=== PATIENT | female | born 1940 | race Caucasian/White ===

== ENCOUNTER 2020-03-04 16:16 | Inpatient (IN) | payer MEDICARE, MEDICAID ==
[~2020-03-04] VITALS: Ht 165.1 cm; Wt 63.3 kg
[~2020-03-04 16:16] MED LIST: FLUT250M2 INH; FURO1TAB33 PO; GLIM2TAB33 PO; HYDR-3682 PO; LEVO500T21 PO; LISI-275 PO; METF-371 PO; NIC21P TD; PANT40TA2 PO; SACC250C PO; SIMV-8 PO
--- NOTE | 2020-03-04 17:30 | NUR ---
Direct Admit Note GABE PULIDO admitted to Telemetry/MS unit as a direct admit per MD order. Patient oriented to JUAN MAHMOOD, RN primary RN, unit, room, bed, and unit policies regarding patient care and visiting hours. Patient now on continuous telemetry monitoring, tele box # [id number]. Patient placed on bedside oxygen, weighed by bedscale and encouraged to call if they need something. All questions and concerns addressed, patient verbalized understanding. MD notified of patients arrival and admit orders received. Bed in low and locked position, rails up x2, no-slip socks on. Written admit orders added, page to dr Barnes, patient requesting sleeping pill and nicotine patch, awaiting call back. IV access obtained with a left wrist 22g after one attempt, patient tolerated it well. Plan of care reviewed.
[2020-03-04 17:39] VITALS: BP 110/72
[2020-03-04] MEDS ORDERED: NITROGLYCERIN 0.4 MG SL TAB SL PRN (18:00)
[2020-03-04] MEDS ORDERED: ALBUTEROL SULF 2.5 MG/0.5ML(0.5%) NEB SOLN NEB PRN (18:00)
[2020-03-04] MEDS ORDERED: SOD CHL 0.45% 1,000 ML IV SCH (18:00)
[2020-03-04] MEDS ORDERED: MORPHINE SULF INJ 2 MG/ML SYRINGE 1ML IV PRN (18:00)
[2020-03-04] MEDS ORDERED: DEXTROSE (50%) 50ML SYRG IV PRN (18:00)
[2020-03-04] MEDS: ALBUTEROL SULF 2.5 MG/0.5ML(0.5%) NEB SOLN NEB SCH (18:00)
[2020-03-04] MEDS ORDERED: LORazepam 2MG/ML-1ML VIAL IV PRN ×2 (18:00→19:45)
[2020-03-04] MEDS ORDERED: ALBUAER3 IN (18:44)
[2020-03-04] MEDS ORDERED: LANS-34 PO (18:44)
[2020-03-04] MEDS ORDERED: METF-869 PO (18:44)
[2020-03-04] MEDS ORDERED: ASPI-498 PO (18:48)
[2020-03-04] MEDS ORDERED: METH2.5T PO (18:48)
--- NOTE | 2020-03-04 19:10 | NUR ---
OPENING SHIFT NOTE: Assumed care of patient. Patient A&O x 4 with some SOB and cough, patient denies pain. Bed in lowest locked position with two side rails raised and call adam within reach. Instructed on POC and encouraged to call for assistance, all questions and concerns addressed, patient verbalizes understanding. Will continue to monitor Q1 hr and PRN.
[2020-03-04 19:44] LABS: Basophils # (auto) 0 10 ^3/uL (0-0.2); Basophils % (auto) 0.7 % (0.0-2.0); Eosinophils # (auto) 0 10 ^3/uL (0-0.8); Eosinophils % (auto) 0.6 % (0.0-7.0); Lymphocytes # (auto) 1.2 10 ^3/uL (0.4-5.4); Lymphocytes % (auto) 25.3 % (10.0-50.0); Mean Corpuscular Hgb Conc. 33.2 g/dL (32.0-36.0); Mean Corpuscular Volume 99.3 fL (80.0-100.0); Monocytes # (auto) 0.5 10 ^3/uL (0-1.3); Monocytes % (auto) 10.1 % (0.0-12.0); Neutrophils # (auto) 2.9 10 ^3/uL (1.6-8.6); Neutrophils % (auto) 63.3 % (37.0-80.0); Nucleated Red Blood Cells % 0.3 %; Platelet Count (auto) 167 10^3/uL (140-450); Red Blood Cells 4.54 10^6/uL (4.0-5.20); Red Cell Distribution Width 15.3 % (11.8-14.3); White Blood Cell 4.6 10^3/uL (4.4-10.8)
[2020-03-04 19:58] LABS: INR 1.11 (0.9-1.15); Partial Thromboplastin Time 26.4 sec (23.0-31.2)
[2020-03-04 20:00] VITALS: BP 103/60
[2020-03-04 20:01] LABS: Calcium 8.8 mg/dL (8.5-10.1); Potassium 4.5 mmol/L (3.5-5.1)
[2020-03-04 20:07] LABS: Albumin 3.5 g/dL (3.4-5.0); BUN/Creatinine Ratio 14.8; Bilirubin, Total 0.5 mg/dL (0.2-1.0); Total Protein 6.4 g/dL (6.4-8.2)
[2020-03-04] MEDS ORDERED: LORazepam 0.5 MG TAB PO ONE (20:15)
[2020-03-04] MEDS ORDERED: LORazepam 0.5 MG TAB PO PRN ×2 (20:15)
[2020-03-04] MEDS: LISINOPRIL 5 MG TAB PO SCH (21:50)
[2020-03-04] MEDS: SULFACETAMIDE SOD 10% OPTH(EYE) SOL 15ML EACHEYE SCH (21:51)
[2020-03-04] MEDS: PANTOPRAZOLE 40 MG/10 ML VIAL INJ IV SCH (21:52)
[2020-03-04] MEDS: methylPREDNISolone SOD SUCC 40 MG/ML VL IV SCH (21:53)
[2020-03-04] MEDS: InsuLIN REG 1unit/0.01ml Soln (100units/ml) SC SCH (21:54)
[2020-03-04] MEDS: ACCU-CHEK COMFORT CURVE STRIP VI SCH (21:54)
--- NOTE | 2020-03-04 21:54 | NUR ---
Medication Held: Patient refused scheduled 2200 insulin stating, "I don't take insulin at home and I wouldn't take insulin for a sugar of 134." Fingerstick 134, Patient educated regarding insulin compliance, patient verbalizes understanding, medication held. 2200 Lisinopril held due to decreased blood pressure. BP taken three times, first BP 103/60, second BP 99/60, Third BP 101/54. Medication held.
[2020-03-04 22:00] VITALS: BP 103/60
[2020-03-05 01:36] VITALS: BP 103/60
--- NOTE | 2020-03-05 02:40 | NUR ---
CALLED TO BEDSIDE BY RN. PT IS IN MODERATE DISTRESS. WITH POX OF 59% ON 4L NC. PT WAS GIVEN A UNIT DOSE OF ALBUTEROL AND SATURATIONS SLOWLY IMPROVED. PT HAS A VERY COARSE WET COUGH. BS ARE DIMINISHED WITH EXP WHEEZES AND CRACKLES. PT DID STATE SUBJECTIVE RELIEVE. PT PLACED ON 10L OXYMIZER. SUGGESTED TO RN THAT PT SHOULD HAVE A STAT CXR FOR INCREASED O2 REQUIREMENTS AND POSSIBLE COVID SWAB. WILL CONT TO MONITOR.
--- NOTE | 2020-03-05 02:45 | NUR ---
Patient complains of increased SOB with wet non-productive cough. Patient Oxygen saturation 60% on 3L NC. Oxygen increased to 6L NC, Oxygen saturation 72%. Respiratory Therapist paged for PRN breathing treatment. Patient placed on 10 L Simple Mask. Oxygen increased to 83%.
--- NOTE | 2020-03-05 02:50 | NUR ---
Patient placed on 10L oxymizer post breathing treatment. Oxygen saturation 90%, patient still experiencing SOB and increased work of breathing. Will call MD to update on patient status
--- NOTE | 2020-03-05 02:55 | NUR ---
Called MD Spoke to MD Barnes regarding patient status and increased SOB, wet cough with bilateral coarse crackles, and decrease in oxygen saturation. New orders received for stat chest x-ray, D/C of IV fluids, 20 mg Lasix, and COVID swab, will note new orders
[2020-03-05] MEDS ORDERED: FUROSEMIDE 20 MG/2 ML VIAL IV ONE (03:15)
--- NOTE | 2020-03-05 03:51 | NUR ---
Oxygen saturation 100% on 10L Oxymizer. Decreased to 6L NC and oxygen saturation at 95%. Will continue to monitor.
--- NOTE | 2020-03-05 04:00 | NUR ---
COVID and GERHARD swabs walked to lab.
--- NOTE | 2020-03-05 04:45 | NUR ---
Oxygen saturation 88% on 6L NC. Patient placed on 10 L Oxymizer, oxygen saturation increased to 92%. Will continue to monitor
[2020-03-05 05:00] VITALS: BP 106/65
[2020-03-05] MEDS: InsuLIN REG 1unit/0.01ml Soln (100units/ml) SC SCH ×4 (06:14→22:00)
[2020-03-05] MEDS: SULFACETAMIDE SOD 10% OPTH(EYE) SOL 15ML EACHEYE SCH ×4 (06:14→18:00)
[2020-03-05] MEDS: ACCU-CHEK COMFORT CURVE STRIP VI SCH ×4 (06:14→22:53)
[2020-03-05] MEDS: ALBUTEROL SULF 2.5 MG/0.5ML(0.5%) NEB SOLN NEB SCH ×3 (06:19→18:00)
--- NOTE | 2020-03-05 06:30 | NUR ---
Care endorsed to Kaylen STOCK. Patient transferred to [facility] via wheelchair by staff without incident.
--- NOTE | 2020-03-05 06:31 | NUR ---
this RN assumed care of this patient.
[2020-03-05 07:16] LABS: Basophils # (auto) 0 10 ^3/uL (0-0.2); Basophils % (auto) 0.2 % (0.0-2.0); Eosinophils # (auto) 0 10 ^3/uL (0-0.8); Hematocrit 42.6 % (36.0-46.0); Hemoglobin 14.2 g/dL (12.2-16.2); Lymphocytes # (auto) 0.3 10 ^3/uL (0.4-5.4); Lymphocytes % (auto) 8.1 % (10.0-50.0); Mean Corpuscular Hemoglobin 33.1 pg (28.0-32.0); Mean Corpuscular Hgb Conc. 33.4 g/dL (32.0-36.0); Mean Corpuscular Volume 99.1 fL (80.0-100.0); Monocytes # (auto) 0 10 ^3/uL (0-1.3); Monocytes % (auto) 0.8 % (0.0-12.0); Neutrophils % (auto) 90.9 % (37.0-80.0); Nucleated Red Blood Cells % 0.1 %; Platelet Count (auto) 152 10^3/uL (140-450); Red Cell Distribution Width 14.9 % (11.8-14.3); White Blood Cell 3.3 10^3/uL (4.4-10.8)
--- NOTE | 2020-03-05 07:22 | NUR ---
closing note pt resting in right lateral position with eyes closed. pt is on 10L oxyimzer. no s/s or respiratory distress. endorsed care to day shift RN Laura.
[2020-03-05 07:31] LABS: Calcium 8.5 mg/dL (8.5-10.1)
[2020-03-05 08:00] VITALS: BP 103/65
--- NOTE | 2020-03-05 08:00 | NUR ---
ASSESSMENT NOTE PT IS ALERT ORIENTED X4, RESTING IN BED COMFORTABLY, NO DISTRESS NOTED, ABLE TO SELF REPOSITION AND VERBALIS HER NEEDS, OXYGEN 10 L OXYMIZER 96%, PAIN 0/10, CONTINUE ON CONTACT ISOLATION DROPLET, MONITOR Q SHIFT, CALL LIGHT WITHIN REACH
[2020-03-05 09:00] VITALS: BP 84/45
[2020-03-05] MEDS: metFORMIN HYDROCHLORIDE 500 MG TAB PO SCH (09:19)
[2020-03-05] MEDS: cefTRIAXone 1GM/50ML D5W 50 ML IV SCH (09:19)
[2020-03-05] MEDS: PANTOPRAZOLE 40 MG/10 ML VIAL INJ IV SCH ×2 (09:19→22:53)
[2020-03-05] MEDS: methylPREDNISolone SOD SUCC 40 MG/ML VL IV SCH ×2 (09:19→22:53)
[2020-03-05] MEDS: NICOTINE 14 MG/24HR TOPICAL PATCH TD SCH (09:20)
[2020-03-05] MEDS ORDERED: LISINOPRIL 5 MG TAB PO SCH (10:00)
[2020-03-05] MEDS: FUROSEMIDE 20 MG/2 ML VIAL IV SCH (10:00)
[2020-03-05] MEDS ORDERED: METHOTREXATE 2.5 MG TAB PO SCH (10:00)
[2020-03-05] MEDS: LISINOPRIL 5 MG TAB PO SCH (10:00)
[2020-03-05] MEDS ORDERED: levoFLOXacin 500MG 100 ML IV SCH (10:00)
--- NOTE | 2020-03-05 10:00 | NUR ---
PT IS SITTING AT THE SIDE OF THE BED, NO DISTRESS NOTED, CONTINUE MONITORING
[2020-03-05 10:19] LABS: Urine Bacteria NONE SEEN /hpf (None Seen); Urine Blood Negative /uL (Negative); Urine Hyaline Cast MANY /lpf (0 - 2); Urine Mucus FEW (None Seen); Urine Specific Gravity 1.012 (1.001-1.035); Urine WBC 13 /hpf (0 - 5)
--- NOTE | 2020-03-05 12:00 | NUR ---
Respiratory note: PT MEDNEB HELD. PT IN NO DISTRESS AT THIS TIME. WAITING FOR COVID RESULTS.
--- NOTE | 2020-03-05 12:37 | NUR ---
PT IS NEGATIVE FOR COVID, CHARGE NURSE MARA MADE AWARE
[2020-03-05 12:53] VITALS: BP 100/41
--- NOTE | 2020-03-05 17:00 | NUR ---
ENCOURAGE PT TO GET OUT OF BED AND SIT ON CHAIR AT BED SIDE, PT COMPLY, NO DISTRESS NOTED, CONTINUE MONITORING
[2020-03-05 17:09] VITALS: BP 91/51
--- NOTE | 2020-03-05 19:00 | NUR ---
Opening Shift Note Assumed care of patient from day shift RN patient awake and alert and oriented x4. No S/S of distress/SOB or pain. Instructed on POC and to call for assist PRN, safety measures in place bed in lowest position, side rails up x2 and call light with in reach. will continue to monitor for changes Q1hr and PRN.
--- NOTE | 2020-03-05 19:06 | NUR ---
RESP NOTE: PT HAS BEEN R/O FOR COVID. HAS ORDERS FOR SCHEDULED MED NEB. MED HELD UNTIL PT CAN BE TRANSPORTED OUT OF COVID UNIT. CAN NOT AEROSOLIZE TX IN COVID UNIT.
--- NOTE | 2020-03-05 21:05 | NUR ---
Received report from DAYAMI Alcaraz, patient alert/oriented, not in distress. Discussed on POC, instructed to call as needed, patient verbalized understanding. Bed in lowest and locked position, bed alarm on, call light within reach, will continue to monitor
--- NOTE | 2020-03-05 21:20 | NUR ---
Patient's blood sugar is 38, rechecked of 44. Gave patient 2 orange juices. Will recheck again later Addendum: 03/06/20 at 0623 by Teri Gates RN RN Patient alert/oriented and no hypoglycemic symptoms.
--- NOTE | 2020-03-05 22:10 | NUR ---
Checked patient's blood sugar and it went up to 53. No hypoglycemic symptoms. Provided patient with 2 more orange juices and carina crackers. Will recheck again later
--- NOTE | 2020-03-05 23:25 | NUR ---
Rechecked blood sugar and its 71, will continue to monitor
[2020-03-06] MEDS: SULFACETAMIDE SOD 10% OPTH(EYE) SOL 15ML EACHEYE SCH ×5 (00:01→23:14)
[2020-03-06 05:00] VITALS: BP 102/72
[2020-03-06] MEDS: ALBUTEROL SULF 2.5 MG/0.5ML(0.5%) NEB SOLN NEB SCH ×3 (06:00→18:28)
[2020-03-06] MEDS: ACCU-CHEK COMFORT CURVE STRIP VI SCH ×4 (06:03→20:52)
[2020-03-06] MEDS: InsuLIN REG 1unit/0.01ml Soln (100units/ml) SC SCH ×4 (06:07→20:51)
--- NOTE | 2020-03-06 06:16 | NUR ---
Respiratory note: Pt refused scheduled 0600 medneb tx. HR 72, RR 16, SPO2 98% on 6lpm oxymizer. Breath sounds diminished t/o. No s/s of distress noted. Will return for next scheduled tx.
--- NOTE | 2020-03-06 06:23 | NUR ---
Blood sugar now is 132, patient refused Insulin
[2020-03-06] MEDS: metFORMIN HYDROCHLORIDE 500 MG TAB PO SCH (08:13)
[2020-03-06 08:31] VITALS: BP 100/41
[2020-03-06] MEDS: cefTRIAXone 1GM/50ML D5W 50 ML IV SCH (09:41)
[2020-03-06] MEDS: FUROSEMIDE 20 MG/2 ML VIAL IV SCH (09:42)
[2020-03-06] MEDS: levoFLOXacin 250MG 50 ML IV SCH (09:42)
[2020-03-06] MEDS: PANTOPRAZOLE 40 MG/10 ML VIAL INJ IV SCH ×2 (09:43→20:51)
[2020-03-06] MEDS: NICOTINE 14 MG/24HR TOPICAL PATCH TD SCH (09:43)
[2020-03-06] MEDS: methylPREDNISolone SOD SUCC 40 MG/ML VL IV SCH ×2 (09:43→20:22)
[2020-03-06] MEDS: LISINOPRIL 5 MG TAB PO SCH (09:48)
--- NOTE | 2020-03-06 12:00 | NUR ---
Patient given instructions on using incentive spirometer. Verbalized understanding.
[2020-03-06 12:31] VITALS: BP 112/51
[2020-03-06 16:30] VITALS: BP 105/47
--- NOTE | 2020-03-06 19:05 | NUR ---
Opening Shift Note Assumed care of patient, awake and alert. Patient on 3L Oxymizer, No S/S of distress/SOB or pain. Bed locked in lowest position, side rails up X2, call light within reach. Instructed on POC and to call for assist PRN, will continue to monitor for changes Q1hr and PRN.
--- NOTE | 2020-03-06 19:20 | NUR ---
at bedside. MD at bedside for evaluation. Further orders received and carried out.
[2020-03-06 20:00] VITALS: BP 109/42
[2020-03-06 21:37] VITALS: BP 89/54
[2020-03-07] MEDS: SULFACETAMIDE SOD 10% OPTH(EYE) SOL 15ML EACHEYE SCH ×3 (05:10→16:45)
[2020-03-07 05:13] VITALS: BP 95/53
[2020-03-07] MEDS: ALBUTEROL SULF 2.5 MG/0.5ML(0.5%) NEB SOLN NEB SCH ×3 (05:49→19:15)
[2020-03-07] MEDS: InsuLIN REG 1unit/0.01ml Soln (100units/ml) SC SCH ×4 (05:55→22:00)
[2020-03-07] MEDS: ACCU-CHEK COMFORT CURVE STRIP VI SCH ×4 (05:55→22:00)
--- NOTE | 2020-03-07 07:00 | NUR ---
CLOSING NOTE CARE ENDORSED TO CHAD STOCK. PATIENT RESTING IN BED ON THE RIGHT POSITION, 4L N/C. NO SIGNS OF DISTRESS OR SOB.
[2020-03-07 07:39] LABS: Basophils # (auto) 0 10 ^3/uL (0-0.2); Basophils % (auto) 0.1 % (0.0-2.0); Eosinophils # (auto) 0 10 ^3/uL (0-0.8); Hematocrit 43.4 % (36.0-46.0); Hemoglobin 14.2 g/dL (12.2-16.2); Lymphocytes # (auto) 0.5 10 ^3/uL (0.4-5.4); Lymphocytes % (auto) 9.2 % (10.0-50.0); Mean Corpuscular Hemoglobin 32.7 pg (28.0-32.0); Mean Corpuscular Hgb Conc. 32.8 g/dL (32.0-36.0); Mean Corpuscular Volume 99.8 fL (80.0-100.0); Monocytes # (auto) 0.2 10 ^3/uL (0-1.3); Monocytes % (auto) 4.8 % (0.0-12.0); Neutrophils # (auto) 4.3 10 ^3/uL (1.6-8.6); Neutrophils % (auto) 85.9 % (37.0-80.0); Platelet Count (auto) 155 10^3/uL (140-450); Red Blood Cells 4.34 10^6/uL (4.0-5.20); Red Cell Distribution Width 15.2 % (11.8-14.3); White Blood Cell 5.1 10^3/uL (4.4-10.8)
--- NOTE | 2020-03-07 08:15 | NUR ---
Opening Shift Note Assumed care of patient, awake and alert. No S/S of distress/SOB or pain. Bed in lowest/locked position, bed rails up x2, call light within reach. Instructed on POC and to call for assist PRN. Will continue to monitor for changes Q1hr and PRN.
[2020-03-07 08:43] VITALS: BP 97/57
[2020-03-07 09:07] LABS: Albumin 3.5 g/dL (3.4-5.0); Calcium 8.8 mg/dL (8.5-10.1); Potassium 4.9 mmol/L (3.5-5.1)
[2020-03-07 09:11] LABS: BUN/Creatinine Ratio 24.2; Bilirubin, Total 0.4 mg/dL (0.2-1.0); Total Protein 6.3 g/dL (6.4-8.2)
[2020-03-07] MEDS: FUROSEMIDE 20 MG/2 ML VIAL IV SCH (09:49)
[2020-03-07] MEDS: cefTRIAXone 1GM/50ML D5W 50 ML IV SCH (09:59)
[2020-03-07] MEDS: LISINOPRIL 5 MG TAB PO SCH ×2 (10:00→16:44)
[2020-03-07] MEDS: methylPREDNISolone SOD SUCC 40 MG/ML VL IV SCH (10:00)
[2020-03-07] MEDS: levoFLOXacin 250MG 50 ML IV SCH (10:00)
[2020-03-07] MEDS: metFORMIN HYDROCHLORIDE 500 MG TAB PO SCH (10:00)
[2020-03-07] MEDS: NICOTINE 14 MG/24HR TOPICAL PATCH TD SCH (10:01)
[2020-03-07] MEDS: PANTOPRAZOLE 40 MG/10 ML VIAL INJ IV SCH ×2 (10:01→23:50)
[2020-03-07] MEDS: PROMETHAZINE W/CODEINE 5 ML ORAL SYRUP PO PRN ×2 (10:10→16:44)
[2020-03-07 11:51] VITALS: BP 98/48
--- NOTE | 2020-03-07 15:29 | NUR ---
Nutrition Assessment Notes Please refer to link for full assessment notes. Est Energy needs: 9535-5022 kcals (20-23 kcal/kgBW) Est Protein needs: 65-71 gms/day (1.0-1.1 gm/kgBW) Will continue to monitor and reassess prn. Addendum: 03/07/20 at [address] Amended: Links added.
--- NOTE | 2020-03-07 15:40 | NUR ---
MD ROUNDS DR WOODS AT BEDSIDE. NEW ORDERS RECEIVED/WILL CARRY OUT. WILL CONTINUE TO MONITOR
[2020-03-07] MEDS ORDERED: ZOLPIDEM TARTRATE 5 MG TAB PO PRN (15:45)
[2020-03-07] MEDS ORDERED: FUROSEMIDE 20 MG TAB PO PRN (15:45)
[2020-03-07 16:59] VITALS: BP 101/69
[2020-03-07 20:00] VITALS: BP 110/69
[2020-03-07 21:40] VITALS: BP 95/54
[2020-03-08 02:31] VITALS: BP 95/54
[2020-03-08] MEDS: SULFACETAMIDE SOD 10% OPTH(EYE) SOL 15ML EACHEYE SCH ×3 (04:59→17:39)
[2020-03-08] MEDS: InsuLIN REG 1unit/0.01ml Soln (100units/ml) SC SCH (05:00)
[2020-03-08 05:35] VITALS: BP 103/51
[2020-03-08] MEDS: ACCU-CHEK COMFORT CURVE STRIP VI SCH ×4 (06:26→21:00)
[2020-03-08] MEDS: ALBUTEROL SULF 2.5 MG/0.5ML(0.5%) NEB SOLN NEB SCH ×3 (06:34→18:44)
--- NOTE | 2020-03-08 07:30 | NUR ---
Opening Shift Note RECEIVED REPORT FROM NOC RN. Assumed care of patient, awake and alert. PATIENT ON OXYGEN AT 6 LPM VIA OXYMIZER WITH no S/S of distress/SOB or pain. BED IN LOWEST, LOCKED POSITION WITH SIDERAILS UP x2 AND CALL LIGHT WITHIN REACH. Instructed on POC and to call for assist PRN, will continue to monitor for changes Q1hr and PRN.
[2020-03-08] MEDS: metFORMIN HYDROCHLORIDE 500 MG TAB PO SCH (07:54)
[2020-03-08 08:29] VITALS: BP 92/44
[2020-03-08] MEDS: cefTRIAXone 1GM/50ML D5W 50 ML IV SCH (08:42)
[2020-03-08] MEDS ORDERED: DEXTROSE (50%) 50ML SYRG IV PRN (09:45)
[2020-03-08] MEDS: levoFLOXacin 250MG 50 ML IV SCH (10:02)
[2020-03-08] MEDS: PANTOPRAZOLE 40 MG/10 ML VIAL INJ IV SCH ×2 (10:03→21:10)
[2020-03-08] MEDS: LISINOPRIL 5 MG TAB PO SCH (10:03)
[2020-03-08] MEDS: methylPREDNISolone SOD SUCC 40 MG/ML VL IV SCH (10:03)
[2020-03-08] MEDS: NICOTINE 14 MG/24HR TOPICAL PATCH TD SCH (10:04)
--- NOTE | 2020-03-08 11:53 | NUR ---
1200 HHN TX NOT GIVEN. PT DOING PROCEDURE. WILL CONTINUE TO MONITOR.
[2020-03-08 12:57] VITALS: BP 98/58
[2020-03-08 17:13] VITALS: BP 91/56
--- NOTE | 2020-03-08 18:15 | NUR ---
AT BEDSIDE FOR MED NEELIMA SHAFFER.
--- NOTE | 2020-03-08 19:20 | NUR ---
Opening shift note Assumed care of patient from day shift RN, Jacky. Patient A&Ox4, respirations even and non-labored without s/s of distress or complaints at this time. Discussed POC with patient and advised her to call for assistance. The patient verbalized understanding. Patient currently on 6L oxymizer. Bed in lowest locked position with 2 side rails up, call light within reach. Will continue to monitor Q1hr and PRN.
[2020-03-08 22:00] VITALS: BP 132/50
--- NOTE | 2020-03-08 22:00 | NUR ---
Blood glucose 205
--- NOTE | 2020-03-08 22:34 | NUR ---
Dr Barnes bedside Patient coughing and congested at this time. Orders: Chest percussion treatment tonight Orders entered.
[2020-03-09] MEDS: SULFACETAMIDE SOD 10% OPTH(EYE) SOL 15ML EACHEYE SCH ×5 (01:42→23:30)
[2020-03-09 05:20] VITALS: BP 102/50
[2020-03-09] MEDS: ACCU-CHEK COMFORT CURVE STRIP VI SCH ×4 (05:33→22:06)
--- NOTE | 2020-03-09 05:50 | NUR ---
Blood Glucose 84
--- NOTE | 2020-03-09 07:09 | NUR ---
OPENING SHIFT NOTES Assumed care of patient from production shift supervisor RN. Patient is alert and oriented x4, no signs of distress noted. Patient denies pain. She was updated on the plan of care and verbalized understanding. Patient does not have IV access. shift mechanic RN is attempting IV. She is receiving oxygen at 6L/min via Oxymizer,Oxygen saturation is 98%. Bed is locked, in the lowest position, side rails are up x2 and call light is in reach. Patient was encouraged to call for assistance as needed
[2020-03-09 08:06] LABS: Basophils # (auto) 0 10 ^3/uL (0-0.2); Basophils % (auto) 0.2 % (0.0-2.0); Eosinophils # (auto) 0.1 10 ^3/uL (0-0.8); Eosinophils % (auto) 1.6 % (0.0-7.0); Hemoglobin 13.8 g/dL (12.2-16.2); Lymphocytes % (auto) 20.8 % (10.0-50.0); Mean Corpuscular Hemoglobin 32.9 pg (28.0-32.0); Mean Corpuscular Hgb Conc. 32.9 g/dL (32.0-36.0); Mean Corpuscular Volume 99.8 fL (80.0-100.0); Monocytes # (auto) 0.3 10 ^3/uL (0-1.3); Monocytes % (auto) 5.4 % (0.0-12.0); Neutrophils # (auto) 3.5 10 ^3/uL (1.6-8.6); Nucleated Red Blood Cells % 0.1 %; Platelet Count (auto) 142 10^3/uL (140-450); Red Cell Distribution Width 15.2 % (11.8-14.3); White Blood Cell 4.8 10^3/uL (4.4-10.8)
[2020-03-09] MEDS: metFORMIN HYDROCHLORIDE 500 MG TAB PO SCH (08:07)
[2020-03-09] MEDS: ALBUTEROL SULF 2.5 MG/0.5ML(0.5%) NEB SOLN NEB SCH ×3 (08:08→18:31)
[2020-03-09 08:19] LABS: Potassium 4.8 mmol/L (3.5-5.1)
--- NOTE | 2020-03-09 08:31 | NUR ---
CALLED PEGGY for clarification of orders. New order to DC solumedrol. Per MD if patient is not going to get SHANEKA with Benjamin she can be discharged. Orders read back and verified.
[2020-03-09 08:37] LABS: Albumin 3.1 g/dL (3.4-5.0); BUN/Creatinine Ratio 23.1; Bilirubin, Total 0.5 mg/dL (0.2-1.0); Calcium 8.8 mg/dL (8.5-10.1); Total Protein 5.8 g/dL (6.4-8.2)
--- NOTE | 2020-03-09 09:30 | NUR ---
IV insertion IV access obtained, via clean sterile technique by inserting 22 gauge catheter at RIGHT WRIST after 3 attemptS. IV secured properly. No trauma to site. Patient tolerated well.
[2020-03-09] MEDS: PANTOPRAZOLE 40 MG/10 ML VIAL INJ IV SCH ×2 (09:47→22:06)
[2020-03-09] MEDS: cefTRIAXone 1GM/50ML D5W 50 ML IV SCH (09:47)
[2020-03-09] MEDS: LISINOPRIL 5 MG TAB PO SCH (09:47)
[2020-03-09] MEDS: NICOTINE 14 MG/24HR TOPICAL PATCH TD SCH (09:48)
[2020-03-09] MEDS: levoFLOXacin 250MG 50 ML IV SCH (10:20)
--- NOTE | 2020-03-09 10:20 | NUR ---
PT AT BEDSIDE Patient was able to ambulate with a walker and standby assistance to the bathroom. Patient complaining of shortness of breath, O2 saturation is 70% on 4L/min via Oxymizer. Oxygen was increased to 5L/min, saturation is now 92%. Will continue to monitor oxygen saturation.
--- NOTE | 2020-03-09 12:30 | NUR ---
PAGED KIRA per MD Barnes to inquire if the patient will have SHANEKA for abnormal 2d Echocardiogram. Awaiting call back.
[2020-03-09 12:50] VITALS: BP 106/56
--- NOTE | 2020-03-09 13:15 | NUR ---
SPOKE WITH KIRA Wren MD he will see the patient this evening.
[2020-03-09 16:32] VITALS: BP 104/61
--- NOTE | 2020-03-09 17:35 | NUR ---
MALONE AT BEDSIDE Updated on the patient status, plan of care was discussed with the patient, MD explained procedure SHANEKA in detail, patient verbalized understanding. New orders to input SHANEKA for tomorrow and patient to be NPO at midnight.
--- NOTE | 2020-03-09 19:25 | NUR ---
Opening shift note Assumed care of patient from day shift RN, Amina Marte Patient is A&Ox4, respirations even and non-labored without coughing or congestion at this time. Patient currently on 5L by oxymizer. Discussed POC, SHANEKA procedure for tomorrow, and answered questions in which the patient verbalized understanding. Bed in lowest locked position with 2 side rails up, call light within reach. Will continue to monitor Q1hr and PRN.
[2020-03-09 22:13] VITALS: BP 103/55
--- NOTE | 2020-03-10 01:47 | NUR ---
Patient c/o SOB RR 22, 97% at this time. Patient requesting a breathing treatment, RT paged.
--- NOTE | 2020-03-10 04:07 | NUR ---
Patient 87% on 4L oxymizer Patient instructed to breath through her nose. Placed on 6L, O2Sat increased to 94%. Patient tolerating well without s/s of distress at this time.
--- NOTE | 2020-03-10 05:15 | NUR ---
Called after hours pharmacy Spoke to Alejo and discussed order for 10% dextrose in 1000 ml at 30 mls/hr. Was told to contact L&D, as the bag was only found in that department in 250 mL bags. Pharmacy revised order to dextrose 10% in 250mL. supervisor decorating contacted and brought 10% dextrose in 1000mL from ICU. Will contact pharmacy to change order back to original order of 10% dextrose in 1000mL.
[2020-03-10] MEDS: ACCU-CHEK COMFORT CURVE STRIP VI SCH ×2 (05:25→12:23)
[2020-03-10] MEDS: SULFACETAMIDE SOD 10% OPTH(EYE) SOL 15ML EACHEYE SCH ×2 (05:27→12:23)
[2020-03-10 05:30] VITALS: BP 99/70
[2020-03-10] MEDS ORDERED: DEXTROSE 10% 1,000 ML IV ONE ×2 (05:59→06:00)
[2020-03-10] MEDS ORDERED: DEXTROSE 10% 250 ML IV SCH ×3 (06:00→07:00)
--- NOTE | 2020-03-10 06:20 | NUR ---
Received and administered 10% dextrose in 1000mL Order running at 30 mls/hr at this time.
--- NOTE | 2020-03-10 06:54 | NUR ---
Called Pharmacy regarding 10% dextrose in 1000mL Discussed 10% dextrose in 250mL in EMAR. Pharmacist aware.
--- NOTE | 2020-03-10 06:55 | NUR ---
Patient prepared for procedure Gown/linens changed, EKG, and answered patient questions. Patient tolerated well.
[2020-03-10] MEDS: ALBUTEROL SULF 2.5 MG/0.5ML(0.5%) NEB SOLN NEB SCH ×2 (07:02→11:47)
[2020-03-10 09:00] VITALS: BP 124/68
--- NOTE | 2020-03-10 09:00 | NUR ---
off unit Patient taken to high density press laborer for SHANEKA
[2020-03-10] MEDS ORDERED: LIDOCAINE VISCOUS 2% 15ML UD PO ONE (09:15)
[2020-03-10] MEDS ORDERED: diphenhdrAMINE HCL 50 MG/1 ML VL IV ONE (09:15)
[2020-03-10] MEDS ORDERED: fentaNYL CITRATE 100 MCG/2 ML VL IV ONE (09:15)
[2020-03-10] MEDS ORDERED: MIDAZOLAM HCL 1MG/1ML-2 ML VIAL IV ONE (09:15)
--- NOTE | 2020-03-10 11:00 | NUR ---
On Unit Patient returned to unit awake, alert and oriented, after having SHANEKA. Dr. Barnes at bedside. Patient for discharge after 4pm if vitals stable.
--- NOTE | 2020-03-10 11:55 | NUR ---
Attempted PT treatment. Pt is on bedside commode and states she does not want to have PT when she is done.
[2020-03-10] MEDS: cefTRIAXone 1GM/50ML D5W 50 ML IV SCH (12:21)
[2020-03-10] MEDS: LISINOPRIL 5 MG TAB PO SCH (12:22)
[2020-03-10] MEDS: levoFLOXacin 250MG 50 ML IV SCH (12:22)
[2020-03-10] MEDS: PANTOPRAZOLE 40 MG/10 ML VIAL INJ IV SCH (12:22)
[2020-03-10] MEDS: NICOTINE 14 MG/24HR TOPICAL PATCH TD SCH (12:23)
[2020-03-10 13:00] VITALS: BP 125/50
[2020-03-10] MEDS ORDERED: SILDENAFIL CITRATE 20 MG TAB PO SCH (14:00)
--- NOTE | 2020-03-10 14:47 | NUR ---
Nutrition Followup Notes Wt: 63.3 kg Pt was off the floor to SHANEKA per RN when rounded this am. pt was NPO this am now resumed with cardiac diet with adequate PO of 75% x3 per RN doc Est Energy needs: 5479-3206 kcals (20-23 kcal/kgBW), Est Protein needs: 65-71 gms/day (1.0-1.1 gm/kgBW). Will continue to monitor and reassess prn. LABS: BUN 21 H CO2 37 H ALB 3.1 L GI: Pt had 1 BM today per RN doc BS: 19 mod risk. Refer to wound assessment report for full details. PES: Altered nutrition related lab values r/t current chronic medical condition aeb hyperglycemia Comments: Will continue to monitor PO status, skin status, pertinent labs and weight trends. Will f/u in 3-5 days. 1) Continue current plan of care
[2020-03-10 16:56] VITALS: BP 111/59
[2020-03-10 17:03] VITALS: BP 111/59
--- NOTE | 2020-03-10 17:42 | NUR ---
Discharge instructions given as ordered. Encourage to follow up with PMD as instructed. All questions and concerns addressed. Patient verbalized understanding. Medication reconciliation form completed and copy given to patient. IV removed with catheter intact and pressure dressing applied. Telemetry unit returned to ICU. Patient taken to vehicle via wheelchair with all personal belongings, accompanied by staff. No distress noted at time of departure.
== END 2020-03-10 17:50 | disposition home or self-care (01) | DRG 193 ==
LOC: TELE-CENTR 17:11 → TELE-EAST 03-05 06:25 → TELE-WESTW 03-05 20:57
PROVIDERS: ADMIT Specialist; ATTEND Specialist
PROC: B246ZZ4 Ultrasonography of Right and Left Heart, Transesophageal (ICD-10-PCS; principal; 2020-03-10)
DX: J18.9 Pneumonia, unspecified organism (principal); J96.21 Acute and chronic respiratory failure with hypoxia; N39.0 Urinary tract infection, site not specified; J44.0 Chronic obstructive pulmonary disease with (acute) lower respiratory infection; J44.1 Chronic obstructive pulmonary disease with (acute) exacerbation; N17.9 Acute kidney failure, unspecified; K21.9 Gastro-esophageal reflux disease without esophagitis; E11.65 Type 2 diabetes mellitus with hyperglycemia; J20.9 Acute bronchitis, unspecified; E11.22 Type 2 diabetes mellitus with diabetic chronic kidney disease; E86.9 Volume depletion, unspecified; I12.9 Hypertensive chronic kidney disease with stage 1 through stage 4 chronic kidney disease, or unspecified chronic kidney disease; I27.20 Pulmonary hypertension, unspecified; E11.649 Type 2 diabetes mellitus with hypoglycemia without coma; N18.9 Chronic kidney disease, unspecified; Z20.828 Contact with and (suspected) exposure to other viral communicable diseases; Z79.84 Long term (current) use of oral hypoglycemic drugs; Z82.3 Family history of stroke; Z86.73 Personal history of transient ischemic attack (TIA), and cerebral infarction without residual deficits; Z87.440 Personal history of urinary (tract) infections; Z99.81 Dependence on supplemental oxygen; Z90.49 Acquired absence of other specified parts of digestive tract; Z87.891 Personal history of nicotine dependence; Z71.6 Tobacco abuse counseling; Z91.11 Patient's noncompliance with dietary regimen; Z80.9 Family history of malignant neoplasm, unspecified; F41.9 Anxiety disorder, unspecified
CPT/HCPCS: 36415; 71045; 80048; 80053; 81001; 82962; 83036; 85025; 85610; 85730; 87070; 87086; 87205; 87426; 93306; 93312; 94640; 97530; 99152; C9113; G0378; J0696; J1815; J1956; J2250; J7042

== ENCOUNTER 2020-07-23 19:42 | Inpatient (IN) | payer MEDICARE, MEDICAID ==
[~2020-07-23] VITALS: Ht 165.1 cm; Wt 59.1 kg
[~2020-07-23 19:42] MED LIST changes: +ALB5IS NEB; +ALBUAER3 IN; +ASCO500T11 PO; +ASPI-498 PO; +ATOR20TA50 PO; +GICOCKTAIL PO; +LANS30CA58 PO; -LEVO500T21 PO; +METF-370 PO; -METF-371 PO; +METH2.5T PO; -NIC21P TD; +NUTR-1405 PO; +PANT40T PO; -PANT40TA2 PO
[2020-07-23] MEDS ORDERED: SODIUM CHLORIDE 0.9% 1,000 ML IV ONE (20:15)
[2020-07-23 21:05] LABS: Basophils # (auto) 0 10 ^3/uL (0-0.2); Basophils % (auto) 0.3 % (0.0-2.0); Eosinophils # (auto) 0 10 ^3/uL (0-0.8); Eosinophils % (auto) 0.1 % (0.0-7.0); Hematocrit 36.2 % (36.0-46.0); Hemoglobin 11.9 g/dL (12.2-16.2); Lymphocytes # (auto) 0.6 10 ^3/uL (0.4-5.4); Lymphocytes % (auto) 3.8 % (10.0-50.0); Mean Corpuscular Hemoglobin 32.2 pg (28.0-32.0); Mean Corpuscular Hgb Conc. 32.9 g/dL (32.0-36.0); Mean Corpuscular Volume 97.8 fL (80.0-100.0); Monocytes # (auto) 0.5 10 ^3/uL (0-1.3); Monocytes % (auto) 3.1 % (0.0-12.0); Neutrophils # (auto) 15.6 10 ^3/uL (1.6-8.6); Neutrophils % (auto) 92.7 % (37.0-80.0); White Blood Cell 16.8 10^3/uL (4.4-10.8)
[2020-07-23] MEDS ORDERED: SODIUM CHLORIDE 0.9% 500 ML IV ONE (21:15)
[2020-07-23] MEDS ORDERED: PIPERACILLIN-TAZOB 3.375GM 100 ML IV ONE (21:15)
[2020-07-23] MEDS ORDERED: VANCOMYCIN 1GM/250ML 250 ML IV ONE (21:15)
[2020-07-23 21:19] LABS: INR 1.14 (0.9-1.15)
[2020-07-23 21:22] LABS: Albumin 2.6 g/dL (3.4-5.0); Anion Gap 8 (5-15); BUN/Creatinine Ratio 14.8; Blood Urea Nitrogen 26 mg/dL (7-18); Calcium 7.6 mg/dL (8.5-10.1); Carbon Dioxide 26 mmol/L (21-32); Chloride 101 mmol/L (98-107); GFR African American 36 mL/min; GFR Non-African American 30 mL/min; Glucose 140 mg/dL (74-106); Magnesium 1.8 mg/dL (1.6-2.6); Sodium 135 mmol/L (136-145)
[2020-07-23 21:27] LABS: Alanine Aminotransferase 13 U/L (13-56); Alkaline Phosphatase 67 U/L (45-117); Aspartate Aminotransferase 10 U/L (15-37); Bilirubin, Total 0.5 mg/dL (0.2-1.0); Total Protein 5.7 g/dL (6.4-8.2)
[2020-07-23] MEDS: NOREPINEPHRINE 8 MG/250ML KIT 250 ML IV SCH (22:12)
[2020-07-24] VITALS (54 sets, daily range): BP systolic 82–134; BP diastolic 37–53
[2020-07-24] MEDS ORDERED: ALBUMIN 5% 250 ML IV ONE (03:45)
[2020-07-24] MEDS ORDERED: SODIUM CHLORIDE 0.9% 1,000 ML IV SCH (03:45)
[2020-07-24] MEDS ORDERED: DEXTROSE (50%) 50ML SYRG IV PRN (03:45)
[2020-07-24] MEDS ORDERED: MORPHINE SULFATE INJECTION 2 MG/ML SYRG IV PRN (05:00)
[2020-07-24] MEDS ORDERED: ONDANSETRON HCL 4 MG/2 ML VIAL IV PRN (05:00)
[2020-07-24] MEDS ORDERED: NITROGLYCERIN 0.4 MG SL TAB SL PRN (05:00)
[2020-07-24] MEDS ORDERED: DOCUSATE SOD 100 MG CAP PO PRN (05:00)
[2020-07-24] MEDS ORDERED: ACETAMINOPHEN 325 MG TAB PO PRN (05:00)
[2020-07-24] MEDS: SODIUM CHLORIDE 0.9% 1,000 ML IV SCH ×2 (05:21→11:25)
[2020-07-24] MEDS: NOREPINEPHRINE 8 MG/250ML KIT 250 ML IV SCH ×2 (05:23→18:50)
[2020-07-24] MEDS: PIPERACILLIN-TAZOB 2.25GM 50 ML IV SCH ×2 (05:57→13:14)
[2020-07-24] MEDS: InsuLIN REG 1unit/0.01ml Soln (100units/ml) SC SCH ×4 (06:06→23:00)
[2020-07-24] MEDS: ACCU-CHEK COMFORT CURVE STRIP VI SCH ×4 (07:00→23:00)
[2020-07-24 07:38] LABS: Basophils # (auto) 0 10 ^3/uL (0-0.2); Basophils % (auto) 0.3 % (0.0-2.0); Eosinophils # (auto) 0 10 ^3/uL (0-0.8); Eosinophils % (auto) 0.1 % (0.0-7.0); Hematocrit 34.4 % (36.0-46.0); Hemoglobin 11.7 g/dL (12.2-16.2); Lymphocytes % (auto) 5.5 % (10.0-50.0); Mean Corpuscular Hemoglobin 32.8 pg (28.0-32.0); Mean Corpuscular Hgb Conc. 33.9 g/dL (32.0-36.0); Mean Corpuscular Volume 96.6 fL (80.0-100.0); Monocytes % (auto) 5.4 % (0.0-12.0); Neutrophils # (auto) 15.7 10 ^3/uL (1.6-8.6); Neutrophils % (auto) 88.7 % (37.0-80.0); Red Blood Cells 3.57 10^6/uL (4.0-5.20); Red Cell Distribution Width 14.7 % (11.8-14.3); White Blood Cell 17.7 10^3/uL (4.4-10.8)
[2020-07-24 07:49] LABS: Albumin 2.8 g/dL (3.4-5.0); Calcium 7.5 mg/dL (8.5-10.1); Potassium 3.6 mmol/L (3.5-5.1)
[2020-07-24 07:53] LABS: Bilirubin, Total 0.4 mg/dL (0.2-1.0); Total Protein 5.5 g/dL (6.4-8.2)
[2020-07-24 08:11] LABS: INR 1.05 (0.9-1.15); Partial Thromboplastin Time 30.7 sec (23.0-31.2)
[2020-07-24] MEDS: ZINC SULFATE 220mg CAP or TAB PO SCH (09:09)
[2020-07-24] MEDS: MULTIPLE VITAMIN TAB PO SCH (09:09)
[2020-07-24] MEDS: FAMOTIDINE 20 MG TAB PO SCH (09:10)
[2020-07-24] MEDS: ASCORBIC ACID 500 MG TAB PO SCH ×2 (09:10→21:00)
[2020-07-24] MEDS: HEPARIN SODIUM (PORCINE) 5000 UNITS/ML 1ML VIAL SC SCH ×2 (09:13→21:00)
[2020-07-24] MEDS ORDERED: LIDOCAINE 1% (LOCAL ANESTH.) PF 5ml SDV ID ONE (15:00)
[2020-07-24] MEDS ORDERED: SOD CHL 0.9%/ KCL 20MEQ 1,000 ML IV ONE (15:30)
[2020-07-24] MEDS ORDERED: HYDROcodone-ACET 10/325MG TAB PO PRN (15:30)
[2020-07-24] MEDS: metroNIDAZOLE 500MG/100ML 100 ML IV SCH (16:13)
[2020-07-24] MEDS ORDERED: LANS30CA58 PO (17:49)
[2020-07-24] MEDS ORDERED: TADA5TAB PO (17:51)
[2020-07-24] MEDS ORDERED: LISI-275 PO (17:51)
[2020-07-24] MEDS ORDERED: FURO20TA3 PO (17:52)
[2020-07-24] MEDS ORDERED: FLUT250M2 INH (17:52)
[2020-07-24] MEDS ORDERED: HYDR-3682 PO (17:53)
[2020-07-24] MEDS ORDERED: ALBUAER3 IN (17:54)
[2020-07-24] MEDS ORDERED: POM NEB (17:58)
[2020-07-24] MEDS ORDERED: VANCOMYCIN HCL 125MG/5ML ORAL SOL PO SCH (18:00)
[2020-07-24] MEDS ORDERED: METF-370 PO (18:02)
[2020-07-24] MEDS: VANCOMYCIN HCL 125MG/5ML ORAL SOL GT SCH (18:02)
[2020-07-24] MEDS: Glucerna Carbsteady SHAKE Stawberry 8oz PO SCH (18:49)
[2020-07-24] MEDS: POTASSIUM CHLORIDE 20 MEQ in D5W/LACTATED RINGERS 1,000 ML IV SCH (21:00)
[2020-07-24] MEDS: SODIUM CHLOR 0.9% PF (SALINE LOCK) 10ML VIAL/SYR IV SCH (21:00)
[2020-07-25] VITALS (75 sets, daily range): BP systolic 91–125; BP diastolic 34–60
[2020-07-25] MEDS: HYDROcodone-ACET 5/325MG TAB PO PRN ×4 (03:50→23:54)
[2020-07-25 04:44] LABS: Basophils # (auto) 0.1 10 ^3/uL (0-0.2); Basophils % (auto) 0.6 % (0.0-2.0); Eosinophils # (auto) 0 10 ^3/uL (0-0.8); Eosinophils % (auto) 0.5 % (0.0-7.0); Hematocrit 31.9 % (36.0-46.0); Hemoglobin 11.1 g/dL (12.2-16.2); Lymphocytes # (auto) 0.7 10 ^3/uL (0.4-5.4); Lymphocytes % (auto) 6.9 % (10.0-50.0); Mean Corpuscular Hemoglobin 33.5 pg (28.0-32.0); Mean Corpuscular Hgb Conc. 34.7 g/dL (32.0-36.0); Mean Corpuscular Volume 96.5 fL (80.0-100.0); Monocytes # (auto) 0.6 10 ^3/uL (0-1.3); Monocytes % (auto) 6.1 % (0.0-12.0); Neutrophils # (auto) 8.6 10 ^3/uL (1.6-8.6); Neutrophils % (auto) 85.9 % (37.0-80.0)
[2020-07-25 05:30] LABS: Potassium 3.6 mmol/L (3.5-5.1)
[2020-07-25 05:35] LABS: Albumin 2.4 g/dL (3.4-5.0); BUN/Creatinine Ratio 12.8; Calcium 7.8 mg/dL (8.5-10.1)
[2020-07-25 05:38] LABS: Bilirubin, Total 0.3 mg/dL (0.2-1.0); Total Protein 5.1 g/dL (6.4-8.2)
[2020-07-25] MEDS: VANCOMYCIN HCL 125MG/5ML ORAL SOL GT SCH ×5 (05:59→23:39)
[2020-07-25] MEDS: InsuLIN REG 1unit/0.01ml Soln (100units/ml) SC SCH ×4 (05:59→22:00)
[2020-07-25] MEDS: ACCU-CHEK COMFORT CURVE STRIP VI SCH ×4 (06:06→22:20)
[2020-07-25] MEDS: POTASSIUM CHLORIDE 20 MEQ in D5W/LACTATED RINGERS 1,000 ML IV SCH ×3 (06:06→20:00)
[2020-07-25] MEDS: metroNIDAZOLE 500MG/100ML 100 ML IV SCH ×4 (08:37→23:40)
[2020-07-25] MEDS: ZINC SULFATE 220mg CAP or TAB PO SCH (10:08)
[2020-07-25] MEDS: MULTIPLE VITAMIN TAB PO SCH (10:08)
[2020-07-25] MEDS: SODIUM CHLOR 0.9% PF (SALINE LOCK) 10ML VIAL/SYR IV SCH ×2 (10:08→21:38)
[2020-07-25] MEDS: Glucerna Carbsteady SHAKE Stawberry 8oz PO SCH ×3 (10:08→18:06)
[2020-07-25] MEDS: FAMOTIDINE 20 MG TAB PO SCH (10:09)
[2020-07-25] MEDS: ASCORBIC ACID 500 MG TAB PO SCH ×2 (10:09→21:38)
[2020-07-25] MEDS: HEPARIN SODIUM (PORCINE) 5000 UNITS/ML 1ML VIAL SC SCH ×2 (10:09→22:19)
[2020-07-25] MEDS: NOREPINEPHRINE 8 MG/250ML KIT 250 ML IV SCH (17:06)
[2020-07-25] MEDS: ALBUTEROL SULF 2.5 MG/0.5ML(0.5%) NEB SOLN NEB PRN (18:09)
[2020-07-26] VITALS (87 sets, daily range): BP systolic 92–128; BP diastolic 38–90
[2020-07-26] MEDS: VANCOMYCIN HCL 125MG/5ML ORAL SOL GT SCH ×4 (05:32→23:51)
[2020-07-26] MEDS: ACCU-CHEK COMFORT CURVE STRIP VI SCH ×4 (06:58→22:00)
[2020-07-26] MEDS: InsuLIN REG 1unit/0.01ml Soln (100units/ml) SC SCH ×4 (06:59→22:00)
[2020-07-26] MEDS: POTASSIUM CHLORIDE 20 MEQ in D5W/LACTATED RINGERS 1,000 ML IV SCH ×2 (07:07→20:38)
[2020-07-26] MEDS: metroNIDAZOLE 500MG/100ML 100 ML IV SCH ×2 (08:37→16:53)
[2020-07-26] MEDS: Glucerna Carbsteady SHAKE Stawberry 8oz PO SCH ×3 (09:10→18:17)
[2020-07-26] MEDS: ALBUTEROL SULF 2.5 MG/0.5ML(0.5%) NEB SOLN NEB PRN ×3 (09:19→22:39)
[2020-07-26] MEDS: FAMOTIDINE 20 MG TAB PO SCH (09:44)
[2020-07-26] MEDS: ZINC SULFATE 220mg CAP or TAB PO SCH (09:45)
[2020-07-26] MEDS: ASCORBIC ACID 500 MG TAB PO SCH ×2 (09:45→21:56)
[2020-07-26] MEDS: MULTIPLE VITAMIN TAB PO SCH (09:45)
[2020-07-26] MEDS: HYDROcodone-ACET 5/325MG TAB PO PRN ×2 (09:46→23:53)
[2020-07-26] MEDS: HEPARIN SODIUM (PORCINE) 5000 UNITS/ML 1ML VIAL SC SCH ×2 (09:47→21:58)
[2020-07-26] MEDS: SODIUM CHLOR 0.9% PF (SALINE LOCK) 10ML VIAL/SYR IV SCH ×2 (16:53→22:14)
[2020-07-26 17:17] LABS: Basophils # (auto) 0 10 ^3/uL (0-0.2); Basophils % (auto) 0.8 % (0.0-2.0); Eosinophils # (auto) 0.1 10 ^3/uL (0-0.8); Eosinophils % (auto) 1.8 % (0.0-7.0); Hemoglobin 11.9 g/dL (12.2-16.2); Lymphocytes # (auto) 0.8 10 ^3/uL (0.4-5.4); Lymphocytes % (auto) 24.3 % (10.0-50.0); Mean Corpuscular Hemoglobin 32.2 pg (28.0-32.0); Mean Corpuscular Volume 97.5 fL (80.0-100.0); Monocytes # (auto) 0.3 10 ^3/uL (0-1.3); Monocytes % (auto) 8.3 % (0.0-12.0); Neutrophils # (auto) 2.2 10 ^3/uL (1.6-8.6); Neutrophils % (auto) 64.8 % (37.0-80.0); Nucleated Red Blood Cells % 0.1 %; Red Blood Cells 3.69 10^6/uL (4.0-5.20); Red Cell Distribution Width 15.3 % (11.8-14.3); White Blood Cell 3.3 10^3/uL (4.4-10.8)
[2020-07-26 17:27] LABS: Albumin 2.5 g/dL (3.4-5.0); Calcium 8.1 mg/dL (8.5-10.1); Potassium 4.4 mmol/L (3.5-5.1)
[2020-07-26 17:31] LABS: BUN/Creatinine Ratio 9.4; Bilirubin, Total 0.2 mg/dL (0.2-1.0); Total Protein 5.3 g/dL (6.4-8.2)
[2020-07-26] MEDS: NOREPINEPHRINE 8 MG/250ML KIT 250 ML IV SCH (22:00)
[2020-07-27] VITALS (69 sets, daily range): BP systolic 91–143; BP diastolic 32–74
[2020-07-27 04:33] LABS: Basophils # (auto) 0 10 ^3/uL (0-0.2); Basophils % (auto) 0.7 % (0.0-2.0); Eosinophils # (auto) 0.1 10 ^3/uL (0-0.8); Hematocrit 32.4 % (36.0-46.0); Hemoglobin 10.9 g/dL (12.2-16.2); Lymphocytes # (auto) 0.9 10 ^3/uL (0.4-5.4); Lymphocytes % (auto) 22.6 % (10.0-50.0); Mean Corpuscular Hemoglobin 32.6 pg (28.0-32.0); Mean Corpuscular Hgb Conc. 33.7 g/dL (32.0-36.0); Mean Corpuscular Volume 96.7 fL (80.0-100.0); Monocytes # (auto) 0.3 10 ^3/uL (0-1.3); Monocytes % (auto) 8.4 % (0.0-12.0); Neutrophils # (auto) 2.6 10 ^3/uL (1.6-8.6); Neutrophils % (auto) 66.3 % (37.0-80.0); Red Blood Cells 3.35 10^6/uL (4.0-5.20); Red Cell Distribution Width 15.4 % (11.8-14.3)
[2020-07-27 04:49] LABS: Albumin 2.3 g/dL (3.4-5.0); Calcium 7.4 mg/dL (8.5-10.1); Potassium 4.4 mmol/L (3.5-5.1)
[2020-07-27 04:51] LABS: BUN/Creatinine Ratio 9.1
[2020-07-27 04:54] LABS: Bilirubin, Total 0.3 mg/dL (0.2-1.0); Total Protein 4.9 g/dL (6.4-8.2)
[2020-07-27] MEDS: ALBUTEROL SULF 2.5 MG/0.5ML(0.5%) NEB SOLN NEB PRN ×2 (06:09→10:23)
[2020-07-27] MEDS: VANCOMYCIN HCL 125MG/5ML ORAL SOL GT SCH ×4 (06:26→23:10)
[2020-07-27] MEDS: ACCU-CHEK COMFORT CURVE STRIP VI SCH ×4 (07:00→21:31)
[2020-07-27] MEDS: InsuLIN REG 1unit/0.01ml Soln (100units/ml) SC SCH ×4 (07:00→21:30)
[2020-07-27] MEDS: Glucerna Carbsteady SHAKE Stawberry 8oz PO SCH ×3 (07:55→18:06)
[2020-07-27] MEDS: metroNIDAZOLE 500MG/100ML 100 ML IV SCH ×4 (07:55→23:10)
[2020-07-27] MEDS: POTASSIUM CHLORIDE 20 MEQ in D5W/LACTATED RINGERS 1,000 ML IV SCH (07:56)
[2020-07-27] MEDS: ZINC SULFATE 220mg CAP or TAB PO SCH ×2 (09:45→10:00)
[2020-07-27] MEDS: FAMOTIDINE 20 MG TAB PO SCH (09:45)
[2020-07-27] MEDS: MULTIPLE VITAMIN TAB PO SCH ×2 (09:45→10:00)
[2020-07-27] MEDS: ASCORBIC ACID 500 MG TAB PO SCH ×3 (09:45→21:31)
[2020-07-27] MEDS: HEPARIN SODIUM (PORCINE) 5000 UNITS/ML 1ML VIAL SC SCH ×2 (09:46→21:29)
[2020-07-27] MEDS: SODIUM CHLOR 0.9% PF (SALINE LOCK) 10ML VIAL/SYR IV SCH ×2 (09:46→21:31)
[2020-07-27] MEDS ORDERED: POTASSIUM CHLORIDE 20 MEQ in D5W/LACTATED RINGERS 1,000 ML IV SCH (15:45)
[2020-07-27] MEDS: ALBUTEROL SULF 2.5 MG/0.5ML(0.5%) NEB SOLN NEB SCH ×2 (16:05→18:23)
[2020-07-27] MEDS: SOD CHL 0.45% 1,000 ML IV SCH (16:16)
[2020-07-27] MEDS: NOREPINEPHRINE 8 MG/250ML KIT 250 ML IV SCH (18:06)
[2020-07-27] MEDS: IPRATROPIUM BROM 0.5 MG/2.5ML INH SOL NEB SCH (18:23)
[2020-07-27] MEDS: hydrOXYzine 25 MG TAB or CAP PO PRN (19:18)
[2020-07-27] MEDS: HYDROcodone-ACET 5/325MG TAB PO PRN (23:23)
[2020-07-28] VITALS (20 sets, daily range): BP systolic 93–172; BP diastolic 45–98
[2020-07-28 05:18] LABS: Basophils # (auto) 0 10 ^3/uL (0-0.2); Basophils % (auto) 0.9 % (0.0-2.0); Eosinophils # (auto) 0.1 10 ^3/uL (0-0.8); Eosinophils % (auto) 1.9 % (0.0-7.0); Hematocrit 32.6 % (36.0-46.0); Hemoglobin 11.1 g/dL (12.2-16.2); Lymphocytes # (auto) 0.8 10 ^3/uL (0.4-5.4); Lymphocytes % (auto) 21.9 % (10.0-50.0); Mean Corpuscular Hemoglobin 32.7 pg (28.0-32.0); Mean Corpuscular Volume 96.2 fL (80.0-100.0); Monocytes # (auto) 0.4 10 ^3/uL (0-1.3); Monocytes % (auto) 9.4 % (0.0-12.0); Neutrophils # (auto) 2.5 10 ^3/uL (1.6-8.6); Neutrophils % (auto) 65.9 % (37.0-80.0); Nucleated Red Blood Cells % 0.1 %; Red Blood Cells 3.39 10^6/uL (4.0-5.20); Red Cell Distribution Width 15.1 % (11.8-14.3); White Blood Cell 3.8 10^3/uL (4.4-10.8)
[2020-07-28 05:37] LABS: Potassium 4.2 mmol/L (3.5-5.1)
[2020-07-28 05:46] LABS: Albumin 2.4 g/dL (3.4-5.0); BUN/Creatinine Ratio 6.7; Bilirubin, Total 0.4 mg/dL (0.2-1.0); Calcium 8.3 mg/dL (8.5-10.1); Total Protein 4.9 g/dL (6.4-8.2)
[2020-07-28] MEDS: VANCOMYCIN HCL 125MG/5ML ORAL SOL GT SCH ×3 (06:00→17:46)
[2020-07-28] MEDS: IPRATROPIUM BROM 0.5 MG/2.5ML INH SOL NEB SCH ×3 (06:30→18:27)
[2020-07-28] MEDS: ALBUTEROL SULF 2.5 MG/0.5ML(0.5%) NEB SOLN NEB SCH ×3 (06:30→18:27)
[2020-07-28] MEDS: ACCU-CHEK COMFORT CURVE STRIP VI SCH ×4 (06:48→22:17)
[2020-07-28] MEDS: InsuLIN REG 1unit/0.01ml Soln (100units/ml) SC SCH ×4 (06:48→22:17)
[2020-07-28] MEDS: Glucerna Carbsteady SHAKE Stawberry 8oz PO SCH ×3 (08:00→18:00)
[2020-07-28] MEDS: metroNIDAZOLE 500MG/100ML 100 ML IV SCH ×2 (09:00→15:00)
[2020-07-28] MEDS: ZINC SULFATE 220mg CAP or TAB PO SCH (10:45)
[2020-07-28] MEDS: HEPARIN SODIUM (PORCINE) 5000 UNITS/ML 1ML VIAL SC SCH ×2 (10:45→22:16)
[2020-07-28] MEDS: MULTIPLE VITAMIN TAB PO SCH (10:45)
[2020-07-28] MEDS: SODIUM CHLOR 0.9% PF (SALINE LOCK) 10ML VIAL/SYR IV SCH ×2 (10:45→22:15)
[2020-07-28] MEDS: FAMOTIDINE 20 MG TAB PO SCH (10:45)
[2020-07-28] MEDS: ASCORBIC ACID 500 MG TAB PO SCH ×2 (10:45→22:15)
[2020-07-28] MEDS: SOD CHL 0.45% 1,000 ML IV SCH (11:45)
[2020-07-28] MEDS: hydrOXYzine 25 MG TAB or CAP PO PRN (15:00)
[2020-07-28] MEDS: NOREPINEPHRINE 8 MG/250ML KIT 250 ML IV SCH (22:00)
[2020-07-29] VITALS (22 sets, daily range): BP systolic 92–135; BP diastolic 46–82
[2020-07-29] MEDS: metroNIDAZOLE 500MG/100ML 100 ML IV SCH ×3 (00:01→16:10)
[2020-07-29] MEDS: InsuLIN REG 1unit/0.01ml Soln (100units/ml) SC SCH ×4 (06:24→21:43)
[2020-07-29] MEDS: VANCOMYCIN HCL 125MG/5ML ORAL SOL GT SCH ×4 (06:24→18:00)
[2020-07-29] MEDS: ACCU-CHEK COMFORT CURVE STRIP VI SCH ×4 (06:24→21:43)
[2020-07-29] MEDS: SOD CHL 0.45% 1,000 ML IV SCH (06:24)
[2020-07-29] MEDS: Glucerna Carbsteady SHAKE Stawberry 8oz PO SCH ×3 (08:15→18:00)
[2020-07-29] MEDS: ALBUTEROL SULF 2.5 MG/0.5ML(0.5%) NEB SOLN NEB SCH ×3 (09:22→18:34)
[2020-07-29] MEDS: IPRATROPIUM BROM 0.5 MG/2.5ML INH SOL NEB SCH ×3 (09:22→18:34)
[2020-07-29] MEDS: SODIUM CHLOR 0.9% PF (SALINE LOCK) 10ML VIAL/SYR IV SCH ×2 (09:37→21:42)
[2020-07-29] MEDS: ASCORBIC ACID 500 MG TAB PO SCH ×2 (10:00→21:42)
[2020-07-29] MEDS: FAMOTIDINE 20 MG TAB PO SCH (10:00)
[2020-07-29] MEDS: MULTIPLE VITAMIN TAB PO SCH (10:00)
[2020-07-29] MEDS: HEPARIN SODIUM (PORCINE) 5000 UNITS/ML 1ML VIAL SC SCH ×2 (10:00→21:42)
[2020-07-29] MEDS: ZINC SULFATE 220mg CAP or TAB PO SCH (10:00)
[2020-07-29] MEDS: ALPRAZolam 0.25 MG TAB PO PRN ×2 (12:49→21:44)
[2020-07-29] MEDS ORDERED: ALBUTEROL SULF 2.5 MG/0.5ML(0.5%) NEB SOLN NEB PRN (13:15)
[2020-07-30] VITALS (18 sets, daily range): BP systolic 88–116; BP diastolic 43–66
[2020-07-30] MEDS: metroNIDAZOLE 500MG/100ML 100 ML IV SCH ×4 (00:08→23:40)
[2020-07-30] MEDS: VANCOMYCIN HCL 125MG/5ML ORAL SOL GT SCH ×5 (00:08→23:40)
[2020-07-30] MEDS: SOD CHL 0.45% 1,000 ML IV SCH ×2 (03:45→09:20)
[2020-07-30] MEDS: ALBUTEROL SULF 2.5 MG/0.5ML(0.5%) NEB SOLN NEB SCH ×3 (06:21→19:24)
[2020-07-30] MEDS: IPRATROPIUM BROM 0.5 MG/2.5ML INH SOL NEB SCH ×3 (06:21→19:24)
[2020-07-30 06:41] LABS: Basophils # (auto) 0 10 ^3/uL (0-0.2); Eosinophils # (auto) 0.1 10 ^3/uL (0-0.8); Eosinophils % (auto) 2.4 % (0.0-7.0); Hematocrit 33.9 % (36.0-46.0); Hemoglobin 11.5 g/dL (12.2-16.2); Lymphocytes # (auto) 0.8 10 ^3/uL (0.4-5.4); Lymphocytes % (auto) 18.2 % (10.0-50.0); Mean Corpuscular Hemoglobin 32.9 pg (28.0-32.0); Mean Corpuscular Hgb Conc. 33.9 g/dL (32.0-36.0); Monocytes # (auto) 0.5 10 ^3/uL (0-1.3); Monocytes % (auto) 11.2 % (0.0-12.0); Neutrophils # (auto) 2.9 10 ^3/uL (1.6-8.6); Neutrophils % (auto) 67.2 % (37.0-80.0); Red Cell Distribution Width 15.9 % (11.8-14.3); White Blood Cell 4.4 10^3/uL (4.4-10.8)
[2020-07-30 06:46] LABS: Albumin 2.4 g/dL (3.4-5.0); BUN/Creatinine Ratio 4.5; Calcium 7.8 mg/dL (8.5-10.1); Potassium 4.3 mmol/L (3.5-5.1)
[2020-07-30 06:49] LABS: Bilirubin, Total 0.3 mg/dL (0.2-1.0); Total Protein 4.9 g/dL (6.4-8.2)
[2020-07-30] MEDS: InsuLIN REG 1unit/0.01ml Soln (100units/ml) SC SCH ×4 (06:51→23:12)
[2020-07-30] MEDS: ACCU-CHEK COMFORT CURVE STRIP VI SCH ×4 (06:52→22:00)
[2020-07-30] MEDS: Glucerna Carbsteady SHAKE Stawberry 8oz PO SCH ×3 (07:57→17:54)
[2020-07-30] MEDS ORDERED: FUROSEMIDE 20 MG/2 ML VIAL IV ONE (09:00)
[2020-07-30] MEDS: HEPARIN SODIUM (PORCINE) 5000 UNITS/ML 1ML VIAL SC SCH ×2 (09:33→23:24)
[2020-07-30] MEDS: MULTIPLE VITAMIN TAB PO SCH (09:33)
[2020-07-30] MEDS: FAMOTIDINE 20 MG TAB PO SCH (09:33)
[2020-07-30] MEDS: SODIUM CHLOR 0.9% PF (SALINE LOCK) 10ML VIAL/SYR IV SCH ×2 (09:33→23:23)
[2020-07-30] MEDS: ASCORBIC ACID 500 MG TAB PO SCH ×2 (09:33→22:00)
[2020-07-30] MEDS: ZINC SULFATE 220mg CAP or TAB PO SCH (09:33)
[2020-07-30] MEDS: ALPRAZolam 0.25 MG TAB PO PRN ×2 (10:23→23:40)
[2020-07-30] MEDS: SILDENAFIL CITRATE 20 MG TAB PO SCH ×2 (13:24→20:49)
[2020-07-30] MEDS: VERAPAMIL HCL 40 MG TAB PO SCH ×2 (13:46→23:23)
[2020-07-31 05:39] VITALS: BP 112/53
[2020-07-31] MEDS: ALBUTEROL SULF 2.5 MG/0.5ML(0.5%) NEB SOLN NEB SCH ×3 (06:10→21:01)
[2020-07-31] MEDS: IPRATROPIUM BROM 0.5 MG/2.5ML INH SOL NEB SCH ×3 (06:10→21:00)
[2020-07-31] MEDS: InsuLIN REG 1unit/0.01ml Soln (100units/ml) SC SCH ×4 (06:18→22:00)
[2020-07-31] MEDS: ACCU-CHEK COMFORT CURVE STRIP VI SCH ×4 (06:19→22:00)
[2020-07-31] MEDS: VANCOMYCIN HCL 125MG/5ML ORAL SOL GT SCH ×4 (06:38→23:31)
[2020-07-31] MEDS: VERAPAMIL HCL 40 MG TAB PO SCH ×3 (06:38→22:00)
[2020-07-31] MEDS: SILDENAFIL CITRATE 20 MG TAB PO SCH ×3 (08:00→20:15)
[2020-07-31] MEDS: metroNIDAZOLE 500MG/100ML 100 ML IV SCH ×3 (08:00→23:31)
[2020-07-31] MEDS: Glucerna Carbsteady SHAKE Stawberry 8oz PO SCH ×3 (08:00→18:26)
[2020-07-31 09:00] VITALS: BP 102/55
[2020-07-31] MEDS: SOD CHL 0.45% 1,000 ML IV SCH (09:00)
[2020-07-31] MEDS: ASCORBIC ACID 500 MG TAB PO SCH ×2 (09:22→22:00)
[2020-07-31] MEDS: ZINC SULFATE 220mg CAP or TAB PO SCH (09:22)
[2020-07-31] MEDS: MULTIPLE VITAMIN TAB PO SCH (09:22)
[2020-07-31] MEDS: FAMOTIDINE 20 MG TAB PO SCH (09:22)
[2020-07-31] MEDS: HEPARIN SODIUM (PORCINE) 5000 UNITS/ML 1ML VIAL SC SCH ×2 (10:00→22:38)
[2020-07-31] MEDS: SODIUM CHLOR 0.9% PF (SALINE LOCK) 10ML VIAL/SYR IV SCH ×2 (10:12→22:28)
[2020-07-31 13:00] VITALS: BP 127/75
[2020-07-31] MEDS: ALPRAZolam 0.25 MG TAB PO PRN (15:50)
[2020-07-31 17:00] VITALS: BP 117/67
[2020-07-31 22:00] VITALS: BP 107/59
[2020-07-31] MEDS: HYDROcodone-ACET 5/325MG TAB PO PRN (23:53)
[2020-08-01 05:00] VITALS: BP 108/59
[2020-08-01] MEDS: VERAPAMIL HCL 40 MG TAB PO SCH ×3 (05:12→23:21)
[2020-08-01] MEDS: ALBUTEROL SULF 2.5 MG/0.5ML(0.5%) NEB SOLN NEB SCH ×3 (06:10→18:16)
[2020-08-01] MEDS: IPRATROPIUM BROM 0.5 MG/2.5ML INH SOL NEB SCH ×3 (06:10→18:16)
[2020-08-01] MEDS: InsuLIN REG 1unit/0.01ml Soln (100units/ml) SC SCH ×4 (06:27→23:23)
[2020-08-01] MEDS: ACCU-CHEK COMFORT CURVE STRIP VI SCH ×4 (06:27→23:22)
[2020-08-01] MEDS: VANCOMYCIN HCL 125MG/5ML ORAL SOL GT SCH ×3 (06:33→18:02)
[2020-08-01 06:59] LABS: Basophils # (auto) 0 10 ^3/uL (0-0.2); Eosinophils # (auto) 0.1 10 ^3/uL (0-0.8); Eosinophils % (auto) 3.2 % (0.0-7.0); Hematocrit 34.9 % (36.0-46.0); Hemoglobin 11.7 g/dL (12.2-16.2); Lymphocytes # (auto) 1.1 10 ^3/uL (0.4-5.4); Lymphocytes % (auto) 27.5 % (10.0-50.0); Mean Corpuscular Hemoglobin 32.2 pg (28.0-32.0); Mean Corpuscular Hgb Conc. 33.5 g/dL (32.0-36.0); Mean Corpuscular Volume 96.4 fL (80.0-100.0); Monocytes # (auto) 0.5 10 ^3/uL (0-1.3); Monocytes % (auto) 12.7 % (0.0-12.0); Neutrophils # (auto) 2.3 10 ^3/uL (1.6-8.6); Neutrophils % (auto) 55.6 % (37.0-80.0); Red Blood Cells 3.62 10^6/uL (4.0-5.20); Red Cell Distribution Width 15.9 % (11.8-14.3); White Blood Cell 4.1 10^3/uL (4.4-10.8)
[2020-08-01 07:17] LABS: Potassium 4.2 mmol/L (3.5-5.1)
[2020-08-01 07:27] LABS: Albumin 2.5 g/dL (3.4-5.0); BUN/Creatinine Ratio 4.9; Bilirubin, Total 0.3 mg/dL (0.2-1.0); Calcium 8.1 mg/dL (8.5-10.1); Total Protein 5.2 g/dL (6.4-8.2)
[2020-08-01] MEDS: metroNIDAZOLE 500MG/100ML 100 ML IV SCH (07:35)
[2020-08-01] MEDS: SILDENAFIL CITRATE 20 MG TAB PO SCH ×3 (07:35→21:28)
[2020-08-01] MEDS: Glucerna Carbsteady SHAKE Stawberry 8oz PO SCH ×3 (08:00→18:03)
[2020-08-01 08:34] VITALS: BP 121/68
[2020-08-01] MEDS: SOD CHL 0.45% 1,000 ML IV SCH ×2 (09:00→12:00)
[2020-08-01] MEDS: ALPRAZolam 0.25 MG TAB PO PRN ×2 (09:00→23:23)
[2020-08-01] MEDS: FAMOTIDINE 20 MG TAB PO SCH (09:35)
[2020-08-01] MEDS: SODIUM CHLOR 0.9% PF (SALINE LOCK) 10ML VIAL/SYR IV SCH ×2 (09:35→23:20)
[2020-08-01] MEDS: ZINC SULFATE 220mg CAP or TAB PO SCH (09:35)
[2020-08-01] MEDS: MULTIPLE VITAMIN TAB PO SCH (09:35)
[2020-08-01] MEDS: ASCORBIC ACID 500 MG TAB PO SCH ×2 (09:36→23:21)
[2020-08-01] MEDS: HEPARIN SODIUM (PORCINE) 5000 UNITS/ML 1ML VIAL SC SCH ×2 (09:44→23:22)
[2020-08-01] MEDS ORDERED: ACETAMINOPHEN 325 MG TAB PO PRN (12:00)
[2020-08-01 13:30] VITALS: BP 141/65
[2020-08-01 16:26] VITALS: BP 114/60
[2020-08-01] MEDS: THEOPHYLLINE 80 MG/15ml ORAL Elixir PO SCH ×2 (18:02→23:21)
[2020-08-01] MEDS: BUDESONIDE (INHALATION) 0.5 MG/2 ML NEB NEB SCH (18:17)
[2020-08-01 21:46] VITALS: BP 121/63
[2020-08-01] MEDS: methylPREDNISolone SOD SUCC 40 MG/ML VL IV SCH (23:20)
[2020-08-02] MEDS: VANCOMYCIN HCL 125MG/5ML ORAL SOL GT SCH ×5 (00:14→23:38)
[2020-08-02 05:00] VITALS: BP 104/70
[2020-08-02] MEDS: THEOPHYLLINE 80 MG/15ml ORAL Elixir PO SCH ×4 (05:56→23:46)
[2020-08-02] MEDS: VERAPAMIL HCL 40 MG TAB PO SCH ×3 (05:57→22:40)
[2020-08-02] MEDS: ALBUTEROL SULF 2.5 MG/0.5ML(0.5%) NEB SOLN NEB SCH ×3 (06:35→18:25)
[2020-08-02] MEDS: IPRATROPIUM BROM 0.5 MG/2.5ML INH SOL NEB SCH ×3 (06:35→18:25)
[2020-08-02] MEDS: ACCU-CHEK COMFORT CURVE STRIP VI SCH ×4 (06:37→22:42)
[2020-08-02] MEDS: InsuLIN REG 1unit/0.01ml Soln (100units/ml) SC SCH ×4 (06:38→22:42)
[2020-08-02] MEDS: BUDESONIDE (INHALATION) 0.5 MG/2 ML NEB NEB SCH ×2 (06:40→18:26)
[2020-08-02] MEDS: SILDENAFIL CITRATE 20 MG TAB PO SCH ×3 (08:00→22:38)
[2020-08-02 08:30] VITALS: BP 116/62
[2020-08-02] MEDS: methylPREDNISolone SOD SUCC 40 MG/ML VL IV SCH ×2 (12:13→22:39)
[2020-08-02] MEDS: SODIUM CHLOR 0.9% PF (SALINE LOCK) 10ML VIAL/SYR IV SCH ×2 (12:13→22:38)
[2020-08-02] MEDS: Glucerna Carbsteady SHAKE Stawberry 8oz PO SCH ×3 (12:13→18:49)
[2020-08-02] MEDS: MULTIPLE VITAMIN TAB PO SCH (12:14)
[2020-08-02] MEDS: FAMOTIDINE 20 MG TAB PO SCH (12:14)
[2020-08-02] MEDS: ZINC SULFATE 220mg CAP or TAB PO SCH (12:14)
[2020-08-02] MEDS: HEPARIN SODIUM (PORCINE) 5000 UNITS/ML 1ML VIAL SC SCH ×2 (12:15→22:41)
[2020-08-02] MEDS: SOD CHL 0.45% 1,000 ML IV SCH (12:16)
[2020-08-02] MEDS: ASCORBIC ACID 500 MG TAB PO SCH ×2 (12:24→22:40)
[2020-08-02 12:30] VITALS: BP 110/63
[2020-08-02] MEDS: ALPRAZolam 0.25 MG TAB PO PRN (12:37)
[2020-08-02 16:32] VITALS: BP 128/71
[2020-08-02 20:34] VITALS: BP 128/71
[2020-08-02 22:00] VITALS: BP 106/57
[2020-08-03 05:00] VITALS: BP 107/60
[2020-08-03] MEDS: ALBUTEROL SULF 2.5 MG/0.5ML(0.5%) NEB SOLN NEB SCH ×3 (05:59→18:48)
[2020-08-03] MEDS: IPRATROPIUM BROM 0.5 MG/2.5ML INH SOL NEB SCH ×3 (05:59→18:48)
[2020-08-03] MEDS: BUDESONIDE (INHALATION) 0.5 MG/2 ML NEB NEB SCH ×2 (06:00→18:54)
[2020-08-03] MEDS: VANCOMYCIN HCL 125MG/5ML ORAL SOL GT SCH ×4 (06:43→23:32)
[2020-08-03] MEDS: VERAPAMIL HCL 40 MG TAB PO SCH ×3 (06:44→23:01)
[2020-08-03] MEDS: InsuLIN REG 1unit/0.01ml Soln (100units/ml) SC SCH ×4 (06:53→22:41)
[2020-08-03] MEDS: ACCU-CHEK COMFORT CURVE STRIP VI SCH ×4 (06:54→22:33)
[2020-08-03] MEDS: Glucerna Carbsteady SHAKE Stawberry 8oz PO SCH ×3 (08:00→18:20)
[2020-08-03 08:03] VITALS: BP 91/47
[2020-08-03] MEDS: SILDENAFIL CITRATE 20 MG TAB PO SCH ×3 (09:40→22:59)
[2020-08-03] MEDS: HEPARIN SODIUM (PORCINE) 5000 UNITS/ML 1ML VIAL SC SCH ×2 (09:54→22:42)
[2020-08-03] MEDS: SODIUM CHLOR 0.9% PF (SALINE LOCK) 10ML VIAL/SYR IV SCH ×2 (10:00→22:59)
[2020-08-03] MEDS: ZINC SULFATE 220mg CAP or TAB PO SCH (10:56)
[2020-08-03] MEDS: methylPREDNISolone SOD SUCC 40 MG/ML VL IV SCH ×2 (10:56→13:44)
[2020-08-03] MEDS: predniSONE 5 MG TAB PO SCH (10:56)
[2020-08-03] MEDS: FAMOTIDINE 20 MG TAB PO SCH (10:57)
[2020-08-03] MEDS: MULTIPLE VITAMIN TAB PO SCH (10:57)
[2020-08-03] MEDS: ASCORBIC ACID 500 MG TAB PO SCH ×2 (10:57→23:02)
[2020-08-03 12:00] VITALS: BP_SYST 100; BP_DIAS 0; BP_DIAS 54
[2020-08-03] MEDS: SOD CHL 0.45% 1,000 ML IV SCH (12:25)
[2020-08-03] MEDS: ALPRAZolam 0.25 MG TAB PO SCH ×2 (15:30→23:02)
[2020-08-03 16:53] VITALS: BP 129/63
[2020-08-03 22:00] VITALS: BP 108/57
[2020-08-03] MEDS: THEOPHYLLINE 80 MG/15ml ORAL Elixir PO SCH (23:01)
[2020-08-04 05:00] VITALS: BP 114/56
[2020-08-04] MEDS: ALBUTEROL SULF 2.5 MG/0.5ML(0.5%) NEB SOLN NEB SCH ×2 (06:01→11:36)
[2020-08-04] MEDS: BUDESONIDE (INHALATION) 0.5 MG/2 ML NEB NEB SCH (06:01)
[2020-08-04] MEDS: ACCU-CHEK COMFORT CURVE STRIP VI SCH ×2 (06:27→11:30)
[2020-08-04] MEDS: VANCOMYCIN HCL 125MG/5ML ORAL SOL GT SCH ×2 (06:27→12:23)
[2020-08-04] MEDS: ALPRAZolam 0.25 MG TAB PO SCH ×2 (06:27→15:13)
[2020-08-04] MEDS: InsuLIN REG 1unit/0.01ml Soln (100units/ml) SC SCH ×2 (06:37→12:24)
[2020-08-04] MEDS: VERAPAMIL HCL 40 MG TAB PO SCH ×2 (06:44→14:00)
[2020-08-04] MEDS: IPRATROPIUM BROM 0.5 MG/2.5ML INH SOL NEB SCH ×2 (07:01→11:36)
[2020-08-04 07:25] LABS: Basophils # (auto) 0 10 ^3/uL (0-0.2); Basophils % (auto) 0.1 % (0.0-2.0); Eosinophils # (auto) 0 10 ^3/uL (0-0.8); Hematocrit 34.3 % (36.0-46.0); Hemoglobin 11.6 g/dL (12.2-16.2); Lymphocytes # (auto) 0.5 10 ^3/uL (0.4-5.4); Mean Corpuscular Hemoglobin 32.9 pg (28.0-32.0); Mean Corpuscular Hgb Conc. 33.8 g/dL (32.0-36.0); Mean Corpuscular Volume 97.5 fL (80.0-100.0); Monocytes # (auto) 0.3 10 ^3/uL (0-1.3); Monocytes % (auto) 4.2 % (0.0-12.0); Neutrophils # (auto) 6.8 10 ^3/uL (1.6-8.6); Neutrophils % (auto) 88.7 % (37.0-80.0); Nucleated Red Blood Cells % 0.1 %; Red Blood Cells 3.52 10^6/uL (4.0-5.20); Red Cell Distribution Width 16.2 % (11.8-14.3); White Blood Cell 7.7 10^3/uL (4.4-10.8)
[2020-08-04] MEDS: Glucerna Carbsteady SHAKE Stawberry 8oz PO SCH ×2 (08:00→12:22)
[2020-08-04 08:17] VITALS: BP 103/50
[2020-08-04] MEDS ORDERED: PRE5T PO (08:34)
[2020-08-04] MEDS ORDERED: VER40T PO (08:34)
[2020-08-04] MEDS ORDERED: NUTR-1405 PO (08:34)
[2020-08-04] MEDS ORDERED: SILD20TA PO (08:34)
[2020-08-04] MEDS ORDERED: OME20GT PO (08:34)
[2020-08-04] MEDS: SILDENAFIL CITRATE 20 MG TAB PO SCH ×2 (08:44→15:13)
[2020-08-04] MEDS: ASCORBIC ACID 500 MG TAB PO SCH (08:45)
[2020-08-04] MEDS: MULTIPLE VITAMIN TAB PO SCH (08:45)
[2020-08-04] MEDS: ZINC SULFATE 220mg CAP or TAB PO SCH (08:45)
[2020-08-04] MEDS: FAMOTIDINE 20 MG TAB PO SCH (08:45)
[2020-08-04] MEDS: predniSONE 5 MG TAB PO SCH (08:45)
[2020-08-04] MEDS: methylPREDNISolone SOD SUCC 40 MG/ML VL IV SCH (08:46)
[2020-08-04] MEDS: HEPARIN SODIUM (PORCINE) 5000 UNITS/ML 1ML VIAL SC SCH (09:02)
[2020-08-04] MEDS: THEOPHYLLINE 80 MG/15ml ORAL Elixir PO SCH (10:00)
[2020-08-04] MEDS: SODIUM CHLOR 0.9% PF (SALINE LOCK) 10ML VIAL/SYR IV SCH (10:00)
[2020-08-04] MEDS: SOD CHL 0.45% 1,000 ML IV SCH (12:22)
[2020-08-04 12:38] VITALS: BP 101/46
== END 2020-08-04 16:15 | disposition home or self-care (01) | DRG 871 ==
LOC: EDBD 19:42 → ER 19:42 → TELE 19:43 → MERGE 19:43 → ICU WEST 07-24 07:48 → TELE-CENTR 07-30 15:57
PROVIDERS: ADMIT Nurse Practitioner Family; ATTEND Specialist
PROC: 02HV33Z Insertion of Infusion Device into Superior Vena Cava, Percutaneous Approach (ICD-10-PCS; principal; 2020-07-24)
DX: A41.4 Sepsis due to anaerobes (principal); J96.21 Acute and chronic respiratory failure with hypoxia; J18.9 Pneumonia, unspecified organism; N17.9 Acute kidney failure, unspecified; A04.72 Enterocolitis due to Clostridium difficile, not specified as recurrent; J44.1 Chronic obstructive pulmonary disease with (acute) exacerbation; E44.0 Moderate protein-calorie malnutrition; J44.0 Chronic obstructive pulmonary disease with (acute) lower respiratory infection; I25.10 Atherosclerotic heart disease of native coronary artery without angina pectoris; R63.0 Anorexia; E11.65 Type 2 diabetes mellitus with hyperglycemia; E86.1 Hypovolemia; E87.6 Hypokalemia; N18.2 Chronic kidney disease, stage 2 (mild); I27.81 Cor pulmonale (chronic); I27.29 Other secondary pulmonary hypertension; Z79.899 Other long term (current) drug therapy; F41.9 Anxiety disorder, unspecified; K21.9 Gastro-esophageal reflux disease without esophagitis; Z68.22 Body mass index [BMI] 22.0-22.9, adult; E11.22 Type 2 diabetes mellitus with diabetic chronic kidney disease; I12.9 Hypertensive chronic kidney disease with stage 1 through stage 4 chronic kidney disease, or unspecified chronic kidney disease; I95.9 Hypotension, unspecified; R65.20 Severe sepsis without septic shock; Z20.822 Contact with and (suspected) exposure to COVID-19; Z79.84 Long term (current) use of oral hypoglycemic drugs; Z82.3 Family history of stroke; Z82.62 Family history of osteoporosis; Z87.440 Personal history of urinary (tract) infections; Z87.891 Personal history of nicotine dependence; Z99.81 Dependence on supplemental oxygen; Z90.49 Acquired absence of other specified parts of digestive tract
CPT/HCPCS: 36415; 36569; 71045; 74176; 80053; 82270; 82962; 83605; 83735; 83880; 84484; 85025; 85048; 85610; 85730; 87040; 87070; 87077; 87081; 87205; 87426; 87493; 93005; 93971; 94003; 94640; 96361; 96365; 96366; 96367; 97110; 97163; 97530; G0378; J1815; J2543; J3490

== ENCOUNTER 2020-08-18 19:33 | Inpatient (IN) | payer MEDICARE, MEDICAID ==
[~2020-08-18] VITALS: Ht 30.5 cm; Wt 54.9 kg
[2020-08-18] MEDS: POTASSIUM CHLORIDE 20 MEQ in D5W/LACTATED RINGERS 1,000 ML IV SCH ×2 (00:30→22:00)
[~2020-08-18 19:33] MED LIST changes: +FURO20TA3 PO; +OME20GT PO; -PANT40T PO; +POM NEB; +PRE5T PO; +SILD20TA PO; +TADA5TAB PO; +VER40T PO
[2020-08-18 22:00] VITALS: BP 92/38
[2020-08-18] MEDS ORDERED: MORPHINE SULFATE INJECTION 2 MG/ML SYRG IV PRN (22:00)
[2020-08-18] MEDS ORDERED: METHOTREXATE 2.5 MG TAB PO SCH (22:00)
[2020-08-18] MEDS ORDERED: NITROGLYCERIN 0.4 MG SL TAB SL PRN (22:00)
[2020-08-18] MEDS: PATIENTS OWN MEDICATION (Fluticasone-Salmeterol (Advair Diskus 250/50) 1 PUFF) INH SCH (22:00)
[2020-08-18] MEDS ORDERED: ALBUTEROL SULF HFA 90MCG INH 200DOSE IN PRN (22:00)
[2020-08-18] MEDS: VERAPAMIL HCL 40 MG TAB PO SCH (22:00)
[2020-08-18 22:05] VITALS: BP 92/38
[2020-08-18 22:10] VITALS: BP 92/38
[2020-08-18 23:23] LABS: Basophils # (auto) 0 10 ^3/uL (0-0.2); Basophils % (auto) 0.2 % (0.0-2.0); Eosinophils # (auto) 0 10 ^3/uL (0-0.8); Eosinophils % (auto) 0.2 % (0.0-7.0); Hematocrit 33.9 % (36.0-46.0); Hemoglobin 11.6 g/dL (12.2-16.2); Lymphocytes % (auto) 12.9 % (10.0-50.0); Mean Corpuscular Hemoglobin 32.8 pg (28.0-32.0); Mean Corpuscular Hgb Conc. 34.2 g/dL (32.0-36.0); Mean Corpuscular Volume 95.9 fL (80.0-100.0); Monocytes # (auto) 0.2 10 ^3/uL (0-1.3); Monocytes % (auto) 2.3 % (0.0-12.0); Neutrophils # (auto) 6.8 10 ^3/uL (1.6-8.6); Neutrophils % (auto) 84.4 % (37.0-80.0); Red Blood Cells 3.54 10^6/uL (4.0-5.20); Red Cell Distribution Width 15.6 % (11.8-14.3); White Blood Cell 8.1 10^3/uL (4.4-10.8)
[2020-08-18 23:43] LABS: Albumin 2.7 g/dL (3.4-5.0); Calcium 7.3 mg/dL (8.5-10.1); Magnesium 2.4 mg/dL (1.6-2.6); Potassium 3.4 mmol/L (3.5-5.1)
[2020-08-18 23:46] LABS: BUN/Creatinine Ratio 11.8
[2020-08-18 23:49] LABS: Bilirubin, Total 0.4 mg/dL (0.2-1.0); Total Protein 5.7 g/dL (6.4-8.2)
[2020-08-19] MEDS ORDERED: POTASSIUM CHL 20MEQ/100ML 100 ML IV ONE (00:08)
[2020-08-19] MEDS: ASCORBIC ACID 500 MG TAB PO SCH ×3 (00:30→23:48)
[2020-08-19 05:05] VITALS: BP 113/63
[2020-08-19] MEDS: VERAPAMIL HCL 40 MG TAB PO SCH ×3 (05:23→22:00)
[2020-08-19] MEDS: ALBUTEROL SULF 2.5 MG/0.5ML(0.5%) NEB SOLN NEB SCH ×4 (06:00→18:57)
[2020-08-19] MEDS: hydrOXYzine 25 MG TAB or CAP PO SCH ×3 (07:02→23:49)
[2020-08-19 07:14] LABS: Basophils # (auto) 0 10 ^3/uL (0-0.2); Basophils % (auto) 0.4 % (0.0-2.0); Eosinophils # (auto) 0 10 ^3/uL (0-0.8); Eosinophils % (auto) 0.4 % (0.0-7.0); Hematocrit 32.2 % (36.0-46.0); Hemoglobin 11.2 g/dL (12.2-16.2); Lymphocytes # (auto) 0.9 10 ^3/uL (0.4-5.4); Lymphocytes % (auto) 15.8 % (10.0-50.0); Mean Corpuscular Hemoglobin 33.4 pg (28.0-32.0); Mean Corpuscular Hgb Conc. 34.9 g/dL (32.0-36.0); Mean Corpuscular Volume 95.8 fL (80.0-100.0); Monocytes # (auto) 0.1 10 ^3/uL (0-1.3); Monocytes % (auto) 2.1 % (0.0-12.0); Neutrophils # (auto) 4.5 10 ^3/uL (1.6-8.6); Neutrophils % (auto) 81.3 % (37.0-80.0); Nucleated Red Blood Cells % 0.1 %; Red Blood Cells 3.36 10^6/uL (4.0-5.20); Red Cell Distribution Width 15.5 % (11.8-14.3); White Blood Cell 5.5 10^3/uL (4.4-10.8)
[2020-08-19 07:27] LABS: Potassium 3.4 mmol/L (3.5-5.1)
[2020-08-19 07:36] VITALS: BP 113/63
[2020-08-19 07:37] LABS: Albumin 2.4 g/dL (3.4-5.0); BUN/Creatinine Ratio 11.7; Bilirubin, Total 0.4 mg/dL (0.2-1.0); Calcium 7.4 mg/dL (8.5-10.1)
[2020-08-19] MEDS: Glucerna Carbsteady SHAKE Vanilla 8oz PO SCH ×6 (07:52→18:43)
[2020-08-19] MEDS ORDERED: DEXTROSE (50%) 50ML SYRG IV ONE (08:00)
[2020-08-19] MEDS ORDERED: DEXTROSE (50%) 50ML SYRG IV PRN (08:15)
[2020-08-19 09:00] VITALS: BP 92/56
[2020-08-19] MEDS ORDERED: ACCU-CHEK COMFORT CURVE STRIP VI SCH (11:30)
[2020-08-19] MEDS ORDERED: INSULIN LISPRO (HUMAN) 100 UNITS/ML ML SC SCH (11:30)
[2020-08-19] MEDS ORDERED: InsuLIN REG 1unit/0.01ml Soln (100units/ml) SC ONE (11:30)
[2020-08-19] MEDS ORDERED: ACCU-CHEK COMFORT CURVE STRIP VI ONE (11:30)
[2020-08-19] MEDS: InsuLIN REG 1unit/0.01ml Soln (100units/ml) SC SCH ×3 (11:30→23:48)
[2020-08-19] MEDS: POTASSIUM CHLORIDE 20 MEQ in D5W/LACTATED RINGERS 1,000 ML IV SCH ×2 (11:46→18:44)
[2020-08-19] MEDS: SILDENAFIL CITRATE 20 MG TAB PO SCH ×3 (11:46→20:00)
[2020-08-19] MEDS: PATIENTS OWN MEDICATION (Fluticasone-Salmeterol (Advair Diskus 250/50) 1 PUFF) INH SCH ×2 (11:46→23:48)
[2020-08-19] MEDS: predniSONE 5 MG TAB PO SCH (11:46)
[2020-08-19] MEDS: LISINOPRIL 5 MG TAB PO SCH (11:48)
[2020-08-19] MEDS: ACCU-CHEK COMFORT CURVE STRIP VI SCH ×3 (12:12→23:48)
[2020-08-19 13:00] VITALS: BP 95/52
[2020-08-19 17:01] VITALS: BP 91/50
[2020-08-19] MEDS: ATORVASTATIN 20 MG TAB PO SCH (18:43)
[2020-08-19] MEDS ORDERED: SODIUM CHLORIDE 0.9% 500 ML IV ONE (21:30)
[2020-08-19 22:00] VITALS: BP 70/41
[2020-08-19 22:58] LABS: Potassium 3.8 mmol/L (3.5-5.1)
[2020-08-19 23:03] LABS: Albumin 2.4 g/dL (3.4-5.0); Calcium 7.4 mg/dL (8.5-10.1)
[2020-08-19 23:06] LABS: Bilirubin, Total 0.3 mg/dL (0.2-1.0); Total Protein 5.2 g/dL (6.4-8.2)
[2020-08-19] MEDS: SODIUM CHLORIDE 0.9% 1,000 ML IV SCH (23:30)
[2020-08-20] MEDS: ALBUTEROL SULF 2.5 MG/0.5ML(0.5%) NEB SOLN NEB SCH ×5 (00:36→23:45)
[2020-08-20 05:00] VITALS: BP 74/39
[2020-08-20] MEDS: VERAPAMIL HCL 40 MG TAB PO SCH ×3 (06:00→21:43)
[2020-08-20] MEDS ORDERED: SODIUM CHLORIDE 0.9% 250 ML IV ONE (06:15)
[2020-08-20 06:37] LABS: Basophils # (auto) 0 10 ^3/uL (0-0.2); Basophils % (auto) 0.4 % (0.0-2.0); Eosinophils # (auto) 0 10 ^3/uL (0-0.8); Eosinophils % (auto) 0.2 % (0.0-7.0); Hematocrit 28.7 % (36.0-46.0); Hemoglobin 10.2 g/dL (12.2-16.2); Lymphocytes # (auto) 0.7 10 ^3/uL (0.4-5.4); Lymphocytes % (auto) 13.6 % (10.0-50.0); Mean Corpuscular Hgb Conc. 35.7 g/dL (32.0-36.0); Mean Corpuscular Volume 95.2 fL (80.0-100.0); Monocytes # (auto) 0.1 10 ^3/uL (0-1.3); Monocytes % (auto) 1.5 % (0.0-12.0); Neutrophils # (auto) 4.6 10 ^3/uL (1.6-8.6); Neutrophils % (auto) 84.3 % (37.0-80.0); Red Blood Cells 3.02 10^6/uL (4.0-5.20); Red Cell Distribution Width 15.9 % (11.8-14.3); White Blood Cell 5.4 10^3/uL (4.4-10.8)
[2020-08-20] MEDS: ACCU-CHEK COMFORT CURVE STRIP VI SCH ×4 (06:47→21:42)
[2020-08-20] MEDS: hydrOXYzine 25 MG TAB or CAP PO SCH ×3 (06:47→21:42)
[2020-08-20] MEDS: VANCOMYCIN HCL 125MG/5ML ORAL SOL PO SCH ×3 (06:54→18:07)
[2020-08-20] MEDS: InsuLIN REG 1unit/0.01ml Soln (100units/ml) SC SCH ×4 (07:00→21:39)
[2020-08-20] MEDS: SODIUM CHLORIDE 0.9% 1,000 ML IV SCH ×2 (07:30→17:39)
[2020-08-20] MEDS: Glucerna Carbsteady SHAKE Vanilla 8oz PO SCH ×6 (08:00→18:00)
[2020-08-20 08:30] VITALS: BP 88/47
[2020-08-20] MEDS: LISINOPRIL 5 MG TAB PO SCH (10:00)
[2020-08-20] MEDS: PATIENTS OWN MEDICATION (Fluticasone-Salmeterol (Advair Diskus 250/50) 1 PUFF) INH SCH ×2 (10:00→22:00)
[2020-08-20] MEDS: ASCORBIC ACID 500 MG TAB PO SCH ×2 (10:06→21:42)
[2020-08-20] MEDS: predniSONE 5 MG TAB PO SCH (10:06)
[2020-08-20] MEDS: SILDENAFIL CITRATE 20 MG TAB PO SCH ×3 (10:11→20:00)
[2020-08-20 13:00] VITALS: BP 89/50
[2020-08-20] MEDS ORDERED: metroNIDAZOLE 500MG/100ML 100 ML IV SCH (14:00)
[2020-08-20] MEDS: metroNIDAZOLE 500MG/100ML 100 ML IV SCH ×2 (14:17→21:42)
[2020-08-20 16:30] VITALS: BP 84/46
[2020-08-20] MEDS: ATORVASTATIN 20 MG TAB PO SCH (18:06)
[2020-08-20 20:00] VITALS: BP 107/55
[2020-08-20 21:06] VITALS: BP 107/55
[2020-08-21] MEDS: VANCOMYCIN HCL 125MG/5ML ORAL SOL PO SCH ×4 (00:01→18:36)
[2020-08-21] MEDS: SODIUM CHLORIDE 0.9% 1,000 ML IV SCH (03:30)
[2020-08-21 05:38] VITALS: BP 117/62
[2020-08-21] MEDS: ALBUTEROL SULF 2.5 MG/0.5ML(0.5%) NEB SOLN NEB SCH ×3 (05:50→17:58)
[2020-08-21] MEDS: VERAPAMIL HCL 40 MG TAB PO SCH ×3 (05:55→21:48)
[2020-08-21] MEDS: hydrOXYzine 25 MG TAB or CAP PO SCH ×3 (05:56→21:49)
[2020-08-21] MEDS: metroNIDAZOLE 500MG/100ML 100 ML IV SCH ×3 (05:56→21:50)
[2020-08-21] MEDS: InsuLIN REG 1unit/0.01ml Soln (100units/ml) SC SCH ×4 (06:04→22:00)
[2020-08-21] MEDS: ACCU-CHEK COMFORT CURVE STRIP VI SCH ×4 (06:04→22:09)
[2020-08-21 07:07] LABS: Basophils # (auto) 0 10 ^3/uL (0-0.2); Eosinophils # (auto) 0 10 ^3/uL (0-0.8); Lymphocytes # (auto) 0.3 10 ^3/uL (0.4-5.4); Mean Corpuscular Hemoglobin 33.1 pg (28.0-32.0); Monocytes # (auto) 0 10 ^3/uL (0-1.3); Neutrophils # (auto) 0.4 10 ^3/uL (1.6-8.6)
[2020-08-21 07:15] LABS: Basophils % (auto) 0.8 % (0.0-2.0); Eosinophils % (auto) 0.9 % (0.0-7.0); Hematocrit 32.3 % (36.0-46.0); Lymphocytes % (auto) 45.2 % (10.0-50.0); Mean Corpuscular Hgb Conc. 34.1 g/dL (32.0-36.0); Mean Corpuscular Volume 97.1 fL (80.0-100.0); Monocytes % (auto) 5.2 % (0.0-12.0); Neutrophils % (auto) 47.9 % (37.0-80.0); Red Blood Cells 3.32 10^6/uL (4.0-5.20); Red Cell Distribution Width 16.3 % (11.8-14.3)
[2020-08-21 07:28] LABS: Albumin 2.3 g/dL (3.4-5.0); Calcium 7.7 mg/dL (8.5-10.1); Magnesium 1.9 mg/dL (1.6-2.6); Potassium 4.1 mmol/L (3.5-5.1)
[2020-08-21 07:33] LABS: BUN/Creatinine Ratio 15.9; Bilirubin, Total 0.6 mg/dL (0.2-1.0); Phosphorus 2.7 mg/dL (2.5-4.90)
[2020-08-21 07:37] LABS: White Blood Cell 0.8 10^3/uL (4.4-10.8)
[2020-08-21 08:00] VITALS: BP_SYST 117; BP_SYST 121; BP_DIAS 53; BP_DIAS 62
[2020-08-21] MEDS: Glucerna Carbsteady SHAKE Vanilla 8oz PO SCH ×6 (08:00→18:19)
[2020-08-21] MEDS ORDERED: FILGRASTIM (TBO) 300 MCG/0.5 ML SYRG SC ONE (08:30)
[2020-08-21] MEDS: ASCORBIC ACID 500 MG TAB PO SCH ×2 (10:00→21:50)
[2020-08-21] MEDS: PATIENTS OWN MEDICATION (Fluticasone-Salmeterol (Advair Diskus 250/50) 1 PUFF) INH SCH ×2 (10:00→22:00)
[2020-08-21] MEDS: LISINOPRIL 5 MG TAB PO SCH (10:00)
[2020-08-21 12:00] VITALS: BP 149/63
[2020-08-21] MEDS: D5W/ SOD CHL 0.9%/KCL 20MEQ 1,000 ML IV SCH (12:57)
[2020-08-21 16:00] VITALS: BP 148/56
[2020-08-21] MEDS: ACETAMINOPHEN 500 MG TAB PO PRN (21:49)
[2020-08-21 22:08] VITALS: BP 130/62
[2020-08-22] MEDS: ALBUTEROL SULF 2.5 MG/0.5ML(0.5%) NEB SOLN NEB SCH ×2 (00:04→06:23)
[2020-08-22] MEDS: VANCOMYCIN HCL 125MG/5ML ORAL SOL PO SCH ×2 (00:10→05:40)
[2020-08-22] MEDS: D5W/ SOD CHL 0.9%/KCL 20MEQ 1,000 ML IV SCH (03:08)
[2020-08-22 05:30] VITALS: BP 150/57
[2020-08-22] MEDS: metroNIDAZOLE 500MG/100ML 100 ML IV SCH (05:40)
[2020-08-22] MEDS: VERAPAMIL HCL 40 MG TAB PO SCH (05:41)
[2020-08-22] MEDS: hydrOXYzine 25 MG TAB or CAP PO SCH (05:41)
[2020-08-22] MEDS: ACCU-CHEK COMFORT CURVE STRIP VI SCH (05:41)
[2020-08-22] MEDS: InsuLIN REG 1unit/0.01ml Soln (100units/ml) SC SCH (05:56)
[2020-08-22] MEDS: ACETAMINOPHEN 500 MG TAB PO PRN (06:33)
[2020-08-22 06:45] VITALS: BP 150/57
[2020-08-22] MEDS: Glucerna Carbsteady SHAKE Vanilla 8oz PO SCH ×2 (08:00)
[2020-08-22 08:20] LABS: Hematocrit 33.5 % (36.0-46.0); Hemoglobin 11.2 g/dL (12.2-16.2); Mean Corpuscular Hemoglobin 32.9 pg (28.0-32.0); Mean Corpuscular Hgb Conc. 33.6 g/dL (32.0-36.0); Mean Corpuscular Volume 98.1 fL (80.0-100.0); Red Blood Cells 3.41 10^6/uL (4.0-5.20); Red Cell Distribution Width 16.7 % (11.8-14.3)
[2020-08-22] MEDS ORDERED: ACETAMINOPHEN 500 MG TAB PO PRN (08:30)
[2020-08-22 08:33] VITALS: BP 102/57
[2020-08-22 08:37] LABS: White Blood Cell 1.8 10^3/uL (4.4-10.8)
[2020-08-22 08:38] LABS: Basophils % (manual) 0 (0.0-2.0); Blast Cells 0; Eosinophils % (manual) 0 (0-7); Promyelocytes % 0; Reactive Lymphocytes 0
[2020-08-22 08:46] LABS: Albumin 1.9 g/dL (3.4-5.0); Calcium 7.9 mg/dL (8.5-10.1); Magnesium 1.6 mg/dL (1.6-2.6); Potassium 3.8 mmol/L (3.5-5.1)
[2020-08-22 08:49] LABS: BUN/Creatinine Ratio 13.4; Bilirubin, Total 0.5 mg/dL (0.2-1.0); Total Protein 4.6 g/dL (6.4-8.2)
[2020-08-22 09:06] LABS: Band Neutrophils % (manual) 16; Lymphocytes % (manual) 22 (10.0-50.0); Metamyelocytes % 10; Monocytes % (manual) 4 (0-12); Myelocytes % 6
[2020-08-22] MEDS ORDERED: NOREPINEPHRINE 8 MG/250ML KIT 250 ML IV ONE (09:21)
[2020-08-22] MEDS ORDERED: EPINEPHrine HCL 250 ML IV ONE (09:55)
[2020-08-22] MEDS ORDERED: FILGRASTIM (TBO) 300 MCG/0.5 ML SYRG SC SCH (10:00)
[2020-08-22] MEDS ORDERED: EPINEPHrine HCL 1 MG/10 ML SYRG IV ONE (11:47)
[2020-08-22] MEDS ORDERED: SODIUM BICARBONATE 8.4 % INJ 50ML VIAL IV ONE (11:47)
[2020-08-22] MEDS ORDERED: ATROPINE SULF 1 MG/10ml SYR IM ONE (11:47)
== END 2020-08-22 15:00 | DRG 871 ==
LOC: TELE-CENTR 19:57 → MERGE 19:57 → CENTRAL 08-22 09:31 → ICU WEST 08-22 09:49
PROVIDERS: ADMIT Specialist; ATTEND Specialist
PROC: 5A09357 Assistance with Respiratory Ventilation, Less than 24 Consecutive Hours, Continuous Positive Airway Pressure (ICD-10-PCS; principal; 2020-08-22)
PROC: 5A12012 Performance of Cardiac Output, Single, Manual (ICD-10-PCS; 2020-08-22)
PROC: 0W9930Z Drainage of Right Pleural Cavity with Drainage Device, Percutaneous Approach (ICD-10-PCS; 2020-08-22)
PROC: 0BH17EZ Insertion of Endotracheal Airway into Trachea, Via Natural or Artificial Opening (ICD-10-PCS; 2020-08-22)
DX: A41.9 Sepsis, unspecified organism (principal); J96.01 Acute respiratory failure with hypoxia; R65.21 Severe sepsis with septic shock; J15.1 Pneumonia due to Pseudomonas; A04.71 Enterocolitis due to Clostridium difficile, recurrent; E44.0 Moderate protein-calorie malnutrition; J44.1 Chronic obstructive pulmonary disease with (acute) exacerbation; E87.2 Acidosis; J44.0 Chronic obstructive pulmonary disease with (acute) lower respiratory infection; N17.9 Acute kidney failure, unspecified; N39.0 Urinary tract infection, site not specified; J93.9 Pneumothorax, unspecified; E11.65 Type 2 diabetes mellitus with hyperglycemia; Z20.822 Contact with and (suspected) exposure to COVID-19; I95.9 Hypotension, unspecified; E86.1 Hypovolemia; A03.9 Shigellosis, unspecified; D50.9 Iron deficiency anemia, unspecified; D70.9 Neutropenia, unspecified; E11.22 Type 2 diabetes mellitus with diabetic chronic kidney disease; E11.649 Type 2 diabetes mellitus with hypoglycemia without coma; E86.0 Dehydration; E87.8 Other disorders of electrolyte and fluid balance, not elsewhere classified; I12.9 Hypertensive chronic kidney disease with stage 1 through stage 4 chronic kidney disease, or unspecified chronic kidney disease; F41.9 Anxiety disorder, unspecified; K21.9 Gastro-esophageal reflux disease without esophagitis; L40.9 Psoriasis, unspecified; M19.90 Unspecified osteoarthritis, unspecified site; R54 Age-related physical debility; I46.9 Cardiac arrest, cause unspecified; J20.9 Acute bronchitis, unspecified; N18.9 Chronic kidney disease, unspecified; Z78.9 Other specified health status; Z90.49 Acquired absence of other specified parts of digestive tract; Z79.84 Long term (current) use of oral hypoglycemic drugs; Z86.19 Personal history of other infectious and parasitic diseases; Z86.73 Personal history of transient ischemic attack (TIA), and cerebral infarction without residual deficits; Z87.440 Personal history of urinary (tract) infections; Z99.81 Dependence on supplemental oxygen
CPT/HCPCS: 32551; 36415; 36600; 71045; 76775; 80053; 82270; 82805; 82962; 83735; 84100; 85007; 85025; 85027; 85048; 87045; 87070; 87077; 87081; 87086; 87186; 87205; 87426; 87427; 87493; 92950; 93005; 94002; 94640; 94660; G0378; J0171; J1447; J1815; J3480; J3490